=== PATIENT | male | born 1980 | race Caucasian/White ===

== ENCOUNTER → 2017-03-26 | Outpatient (CLI) | payer OTHER ==
[2017-03-26 12:46] LABS: Blood Urea Nitrogen 13 mg/dL (9-20); Non-African American GFR(MDRD) >60 (>60 ml/min/1.73 sqM)
--- NOTE | 2017-03-26 14:22 | CT ---
EXAMINATION TYPE: CT abdomen pelvis w con DATE OF EXAM: 03/26/2017 2:11 PM COMPARISON: NONE HISTORY: Patient complains of generalized abdominal pain and nausea. CT DLP: 783 mGycm CONTRAST: CT scan of the abdomen and pelvis is performed with Oral Contrast and with IV Contrast, patient injec matt with 100 mL of Omnipaque 300. FINDINGS: LUNG BASES-: No visible nodule. No infiltrate. LIVER/GB: No calcified gallstones. 1.8 cm lesion posterior segment right hepatic lobe at its periph cecy demonstrates Hounsfield unit over 40 and therefore is not a simple cyst. This lesion does not jeovany l in on delayed images. Further evaluation with ultrasound and/or MRI is advised. No additional hepat ic lesions identified. Mild prominence of the right hepatic lobe. Biliary tree is of normal caliber. PANCREAS: No inflammation. No distinct mass. SPLEEN: No splenic enlargement. No lesion seen. Several perisplenic varices noted. ADRENALS: No nodule. No thickening. KIDNEYS/BLADDER: No hydronephrosis. 4 mm calculus proximal left ureter resulting in no mild hydronep hrosis on the left. No right-sided nephrolithiasis appreciated. 1.5 x 1.7 cm rounded area of decrease d attenuation mid pole right kidney may reflect prominent renal. However nonsimple cyst underlying le min is difficult to exclude. Simple cyst is seen upper pole right kidney measuring 6 mm as well as a mid pole left kidney measuring 9.4 mm. Urinary bladder grossly unremarkable. BOWEL: Normal appendix. Normal bowel caliber. No inflammation. Poor distention of the stomach limit ing evaluation. GENITAL ORGANS: No gross abnormality. LYMPH NODES: No greater than 1cm abdominal or pelvic lymph nodes are appreciated. AORTA: No significant abnormality. OSSEOUS STRUCTURES: No significant abnormality is seen. OTHER: No significant additional abnormality is seen. IMPRESSION: 1. Nonspecific lesion right hepatic lobe. Further evaluation with ultrasound and/or MRI advised. 2. I cannot exclude a slightly hypoattenuating lesion mid pole right kidney. Again further evaluation with ultrasound and/or MRI advised. 3. Mildly obstructing calculus proximal left ureter.
== END | disposition home or self-care (01) ==
LOC: RADCTMAIN 11:55
PROVIDERS: ATTEND Family Medicine
DX: K76.89 Other specified diseases of liver (principal); N20.1 Calculus of ureter; E11.65 Type 2 diabetes mellitus with hyperglycemia; R63.4 Abnormal weight loss
CPT/HCPCS: 82565; 84520; 74177; 36415; Q9967

== ENCOUNTER → 2017-04-22 | Outpatient (CLI) | payer OTHER ==
--- NOTE | 2017-04-22 10:34 | US ---
EXAMINATION TYPE: US abdomen comp/pelvis limited DATE OF EXAM: 04/22/2017 COMPARISON: NONE CLINICAL HISTORY: N28.9 LESION RT [facility]ID[facility],E11.65 TYPE 11 DIABETES. EXAM MEASUREMENTS: Liver Length: 15.1 cm Gallbladder Wall: 0.2 cm CBD: 0.3 cm CHD: 0.3 cm Spleen: 9.9 cm Right Kidney: 14.0 x 5.2 x 4.6 cm Left Kidney: 11.8 x 5.7 x 6.1 cm Pancreas: wnl. Main pancreatic duct = 1.4 mm Liver: right echogenic nonvascular circular lesion = 1.8 x 1.9 x 1.7 cm. Gallbladder: wnl CBD: wnl Spleen: wnl Right Kidney: Enlarged. Mid cystic lesion = 1.9 x 1.5 x 1.6 cm Left Kidney: wnl Upper IVC: seen Abd Aorta: seen Bladder: distended, wnl as visualized Bilateral Jets Seen IMPRESSION: 1. Nonspecific hyperechoic lesion posterior segment right hepatic lobe could reflect atypical radha ioma. Consider MRI correlation. 2. Right renal cyst.
== END | disposition home or self-care (01) ==
LOC: RADUSWWP 09:32
PROVIDERS: ATTEND Family Medicine
DX: N28.9 Disorder of kidney and ureter, unspecified (principal); E11.65 Type 2 diabetes mellitus with hyperglycemia; N28.1 Cyst of kidney, acquired
CPT/HCPCS: 76700; 76857

== ENCOUNTER 2017-05-04 08:11 | Day surgery (SDC) | payer OTHER ==
[2017-04-30 14:21] VITALS: BMI 17.7
[~2017-05-04 08:11] MED LIST: LACTATED RINGERS 1,000 ML IV SCH
[2017-05-04 08:36] VITALS: TEMP 97.4
[2017-05-04 08:43] LABS: Glucose,Whole Blood 159 mg/dL (75-99)
[2017-05-04] MEDS ORDERED: LIDOCAINE 1% 20 ML VIAL (10MG/ML) FOR IV START INTRADERMA ONE (08:51)
[2017-05-04] MEDS ORDERED: LIDOCAINE 1% INJ 10MG/ML (20 ML MDV) ONE (09:12)
[2017-05-04] MEDS ORDERED: PROPOFOL 10 MG/ML 20 ML VIAL IV ONE (09:12)
[2017-05-04 09:40] VITALS: RESP 18
--- NOTE | 2017-05-04 09:43 | P.PCN ---
Date of Procedure: 05/04/17 Preoperative Diagnosis: Postoperative Diagnosis: Procedure(s) Performed: Procedure: Esophagogastroduodenoscopy and biopsy. Preoperative diagnosis: Epigastric pain and nonspecific abdominal symptoms. Postoperative diagnosis: 1. Small sliding hiatal hernia with no obvious esophagitis or complicated reflux disease. 2. Mild antral gastritis. 3. Multiple biopsies obtained from the duodenum, antrum and esophagus. Preparation and sedation: Was provided by anesthesia. Brief clinical history: The patient is a 56-year-old male who I have evaluated in the office regarding epigastric pain as well as abdominal gas and bloating and change in bowel habits with a tendency to constipation. The patient has history of diabetes mellitus. This evaluation is to assess for esophagitis or complicated reflux disease or other pathology. Procedure: With the patient on his left lateral decubitus position and after informed consent and adequate sedation, the Olympus-GIF 160 video upper endoscope was advanced through the cricopharyngeus down the esophagus. GE junction was around 41 cm from the incisors and there was a small sliding hiatal hernia. The esophagus did not show any obvious erosions, ulcers, strictures or White's esophagus. The endoscope was then passed into the stomach which was insufflated with air and inspected in detail including the retroflex view in the cardia. There was some mottling and erythema in the antrum but no ulcers or erosions. Pyloric channel, duodenal bulb, post bulbar area and descending duodenum appeared within normal limits. Because of his symptoms, I obtained biopsies from the duodenum, antrum and esophagus then the endoscope was withdrawn. The patient tolerated the procedure well. Plan: The patient was reassured. Will await biopsy results. Further plans can be made based on his course and biopsy results. I will keep you updated on his progress. Implants: Indications for Procedure: Operative Findings: Description of Procedure:
[2017-05-04 09:56] VITALS: BP 107/64; PULSE 74
[2017-05-04 09:56] LABS: Glucose,Whole Blood 150 mg/dL (75-99)
== END 2017-05-04 10:22 | disposition home or self-care (01) ==
LOC: ORWHC2ENDO 08:11
DX: K29.70 Gastritis, unspecified, without bleeding (principal); K44.9 Diaphragmatic hernia without obstruction or gangrene; K59.00 Constipation, unspecified; E11.9 Type 2 diabetes mellitus without complications; I10 Essential (primary) hypertension; F17.200 Nicotine dependence, unspecified, uncomplicated; K21.9 Gastro-esophageal reflux disease without esophagitis; Z79.84 Long term (current) use of oral hypoglycemic drugs; Z79.4 Long term (current) use of insulin; Z79.899 Other long term (current) drug therapy; Z91.030 Bee allergy status; Z91.013 Allergy to seafood
CPT/HCPCS: 88305; 88342; 43239; J2001; J2704

== ENCOUNTER 2019-09-08 17:57 | Emergency (ER) | payer BC, OTHER ==
[2019-09-08 18:04] VITALS: BP 154/77; PULSE 92; RESP 20; TEMP 97.8
--- NOTE | 2019-09-08 19:02 | ED ---
ENT HPI - General Chief complaint: Dental/Oral Stated complaint: Dental infection Time Seen by Provider: 09/08/19 18:15 Source: patient Mode of arrival: ambulatory Limitations: no limitations - History of Present Illness Initial comments: Patient is a 38-year-old male presenting to emergency Department with complaints of left sided dental pain 4 days. Past medical history of diabetes type 1, Emmet's disease, anxiety. Patient states he has an impacted wisdom tooth on the upper left side that sometimes gives him pain on and off for the last few y ears. The last 4 days the pain has increased and he is unable to chew on that side. Patient states is never usually hurt this bad. Patient also admits to some mild left-sided facial swelling. Patient is concerned that this might be starting to turn into an abscess. Patient also has a fractured tooth next to his wisdom tooth. Patient denies fever, chills, nausea, vomiting. Patient has no other complaints at this time. Upon arrival to the ER, vital signs are stable. - Related Data Home Medications Medication Instructions Recorded Confirmed Insulin Glargine [Lantus] 10 unit SQ BID 04/30/17 05/04/17 Lisinopril [Zestril] 2.5 mg PO 1200 04/30/17 04/30/17 Omeprazole [PriLOSEC] 20 mg PO AC-BRKFST 04/30/17 04/30/17 metFORMIN HCL [Metformin HCl] 500 mg PO BID 04/30/17 05/04/17 Previous Rx's Medication Instructions Recorded Penicillin V Potassium [Pen Vee K] 500 mg PO QID 7 Days #28 tablet 09/08/19 Allergies Allergy/AdvReac Type Severity Reaction Status Date / Time shellfish derived [Shellfish] Allergy Anaphylaxis Verified 09/08/19 18:04 venom-honey bee Allergy Unknown Verified 09/08/19 18:04 [bee venom (honey bee)] Review of Systems ROS Statement: Those systems with pertinent positive or pertinent negative responses have been documented in the HPI. ROS Other: All systems not noted in ROS Statement are negative. Past Medical History Past Medical History: Diabetes Mellitus, GERD/Reflux Additional Past Medical History / Comment(s): having abdominal pain, states takes lisinopril r/t kidney, states has cyst on kidney and some liver abnormalities is watching. History of Any Multi-Drug Resistant Organisms: None Reported Past Surgical History: Tonsillectomy Additional Past Surgical History / Comment(s): benign bone cyst removed 20 years ago, from left femur Past Anesthesia/Blood Transfusion Reactions: No Reported Reaction Additional Past Anesthesia/Blood Transfusion Reaction / Comment(s): difficulty urinating post bone cyst removal Past Psychological History: No Psychological Hx Reported Smoking Status: Current every day smoker Past Alcohol Use History: Occasional Past Drug Use History: None Reported - Past Family History Father Family Medical History: Cancer Additional Family Medical History / Comment(s): lymphoma General Exam - General Exam Comments Initial Comments: GENERAL: Well-appearing, well-nourished and in no acute distress. HEAD: Atraumatic, normocephalic. EYES: Pupils equal round and reactive to light, extraocular movements intact, sclera anicteric, conjunctiva are normal. ENT: TMs normal, nares patent, oropharynx clear without exudates. Moist mucous membranes. Pain with palpation of #16/15 teeth, mild erythema surrounding gumline. Fracture of tooth #15. Dental caries present. Mild left facial swelling. No overlying erythema. NECK: Normal range of motion, supple without lymphadenopathy or JVD. LUNGS: Breath sounds clear to auscultation bilaterally and equal. No wheezes rales or rhonchi. HEART: Regular rate and rhythm without murmurs, rubs or gallops. ABDOMEN: Soft, nontender, normoactive bowel sounds. No guarding, no rebound. No masses appreciated. NEUROLOGICAL: Cranial nerves II through XII grossly intact. Normal speech, normal gait. SKIN: Warm, Dry, normal turgor, no rashes or lesions noted. Limitations: no limitations Course Vital Signs 09/08/19 18:02 Temperature 97.8 F Pulse Rate 92 Respiratory 20 Rate Blood Pressure 154/77 O2 Sat by Pulse 98 Oximetry Medical Decision Making - Medical Decision Making Patient is a 38-year-old male presenting for a possible tooth abscess 4 days. On exam patient has multiple dental caries as well as pain with palpation of teeth #16 and #15. There is some mild surrounding erythema of the gumline. Patient will be started on antibiotic for possible tooth abscess. Patient will follow-up with dentist MARILIN. Patient is stable for discharge at this time and he is in agreement with this plan of care. Return parameters were discussed with the patient and he verbalized understanding. Case discussed with Dr. Paulino. Disposition Clinical Impression: Dental caries, Toothache, Dental abscess Disposition: HOME SELF-CARE Condition: Stable Instructions (If sedation given, give patient instructions): Dental Abscess (ED ) Additional Instructions: Please return to the Emergency Department if symptoms worsen or any other concerns. Follow-up with dentist as soon as possible Take antibiotics as prescribed.. Prescriptions: Penicillin V Potassium [Pen Vee K] 500 mg PO QID 7 Days #28 tablet Is patient prescribed a controlled substance at d/c from ED?: No Referrals: Issa Bean DO [Primary Care Provider] - 1-2 days
== END 2019-09-08 19:24 | disposition home or self-care (01) ==
LOC: EC 17:57
DX: K02.9 Dental caries, unspecified (principal); K04.7 Periapical abscess without sinus; S02.5XXA Fracture of tooth (traumatic), initial encounter for closed fracture; E10.9 Type 1 diabetes mellitus without complications; K21.9 Gastro-esophageal reflux disease without esophagitis; F17.200 Nicotine dependence, unspecified, uncomplicated; Z79.4 Long term (current) use of insulin; Z79.899 Other long term (current) drug therapy; Z91.013 Allergy to seafood; Z91.030 Bee allergy status
CPT/HCPCS: 99282

== ENCOUNTER 2019-09-20 18:40 | Inpatient (IN) | payer BC ==
[2019-09-20 19:07] LABS: Glucose,Whole Blood 389 mg/dL (75-99)
[2019-09-20] MEDS ORDERED: SODIUM CHLORIDE 0.9% 2,000 ML IV STA (19:08)
[2019-09-20] MEDS ORDERED: INSULIN REGULAR 100 UNIT/ML VIAL IV ONE (19:11)
[2019-09-20] MEDS ORDERED: INSULIN REGULAR 100 UNIT in SODIUM CHLORIDE 0.9% 100 ML IV SCH (19:15)
[2019-09-20 19:21] LABS: Basophils # (A) 0.1 k/uL (0-0.2); Basophils % (A) 1 %; Eosinophils # (A) 0.1 k/uL (0-0.7); Eosinophils % (A) 0 %; HCT 55.6 % (39.0-53.0); HGB 18.1 gm/dL (13.0-17.5); Lymphocytes # (A) 1.7 k/uL (1.0-4.8); Lymphocytes % (A) 10 %; MCH 30.2 pg (25.0-35.0); MCHC 32.5 g/dL (31.0-37.0); MCV 93.1 fL (80.0-100.0); Mean Platelet Volume 6.8; Monocytes # (A) 0.9 k/uL (0-1.0); Monocytes % (A) 5 %; Neutrophils # (A) 14.5 k/uL (1.3-7.7); Neutrophils % (A) 83 %; Platelet Count 366 k/uL (150-450); RBC 5.98 m/uL (4.30-5.90); RDW 12.1 % (11.5-15.5); WBC 17.5 k/uL (3.8-10.6)
[2019-09-20 19:30] LABS: ALT 19 U/L (21-72); AST 19 U/L (17-59); African American GFR (CKD) >90 (>60 ml/min/1.73 sqM); Albumin 5.5 g/dL (3.5-5.0); Alkaline Phosphatase 133 U/L (38-126); Amylase 65 U/L (30-110); Anion Gap 30 mmol/L; Blood Urea Nitrogen 14 mg/dL (9-20); Calcium 10.4 mg/dL (8.4-10.2); Chloride 105 mmol/L (98-107); Glucose 431 mg/dL (74-99); Sodium 140 mmol/L (137-145); Total Bilirubin 0.7 mg/dL (0.2-1.3); Total Protein 9.4 g/dL (6.3-8.2)
[2019-09-20 19:36] LABS: Carbon Dioxide 5 mmol/L (22-30); Potassium 6.1 mmol/L (3.5-5.1)
--- NOTE | 2019-09-20 19:46 | ED ---
General Adult HPI - General Chief complaint: Recheck/Abnormal Lab/Rx Stated complaint: DKA Time Seen by Provider: 09/20/19 18:40 Source: patient, family, RN notes reviewed Mode of arrival: ambulatory Limitations: no limitations - History of Present Illness Initial comments: This is a 38-year-old male who presents emergency department with past medical h istory significant for diabetes and Enrique's disease. Patient states he was unable to use as possible over the weekend but he was substituting with NovoLog but as of yesterday he started feeling sick in her sugar started to run high. Patient states he's been vomiting all day today and he feels considerably worse. Patient states he also was breathing faster he is noted and is extremely thirsty. Patient denies any fever chills per patient denies chest pain difficulty breathing or shortness of breath per patient denies any palpitations. Patient states he has some abdominal achiness secondary to probably vomiting. Patient states palpating his abdomen does not cause him any pain. Patient denies any diarrhea. Patient denies any dysuria hematuria urinary frequency. Patient denies any skin rashes lesions or sores. - Related Data Home Medications Medication Instructions Recorded Confirmed Insulin Glargine [Lantus] 10 unit SQ BID 04/30/17 05/04/17 Lisinopril [Zestril] 2.5 mg PO 1200 04/30/17 04/30/17 Omeprazole [PriLOSEC] 20 mg PO AC-BRKFST 04/30/17 04/30/17 metFORMIN HCL [Metformin HCl] 500 mg PO BID 04/30/17 05/04/17 Previous Rx's Medication Instructions Recorded Penicillin V Potassium [Pen Vee K] 500 mg PO QID 7 Days #28 tablet 09/08/19 Allergies Allergy/AdvReac Type Severity Reaction Status Date / Time shellfish derived [Shellfish] Allergy Anaphylaxis Verified 09/20/19 18:41 venom-honey bee Allergy Unknown Verified 09/20/19 18:41 [bee venom (honey bee)] Review of Systems ROS Statement: Those systems with pertinent positive or pertinent negative responses have been documented in the HPI. ROS Other: All systems not noted in ROS Statement are negative. Past Medical History Past Medical History: Diabetes Mellitus, GERD/Reflux Additional Past Medical History / Comment(s): having abdominal pain, states takes lisinopril r/t kidney, states has cyst on kidney and some liver abnormalities dr is watching. History of Any Multi-Drug Resistant Organisms: None Reported Past Surgical History: Tonsillectomy Additional Past Surgical History / Comment(s): benign bone cyst removed 20 years ago, from left femur Past Anesthesia/Blood Transfusion Reactions: No Reported Reaction Additional Past Anesthesia/Blood Transfusion Reaction / Comment(s): difficulty urinating post bone cyst removal Past Psychological History: Anxiety Smoking Status: Current every day smoker Past Alcohol Use History: Occasional Past Drug Use History: None Reported - Past Family History Father Family Medical History: Cancer Additional Family Medical History / Comment(s): lymphoma General Exam - General Exam Comments Initial Comments: GENERAL: Patient is well-developed and well-nourished. Patient is nontoxic and well- hydrated and is in mild distress. ENT: Neck is soft and supple. No significant lymphadenopathy is noted. Oropharynx is clear. Dry mucous membranes. Neck has full range of motion without eliciting any pain. EYES: The sclera were anicteric and conjunctiva were pink and moist. Extraocular movements were intact and pupils were equal round and reactive to light. Eyelids were unremarkable. PULMONARY: Patient is tachypneic. Good breath sounds bilaterally. No audible rales rhonchi or wheezing was noted. CARDIOVASCULAR: Patient is tachycardic. ABDOMEN: Soft and nontender with normal bowel sounds. No palpable organomegaly was noted. There is no palpable pulsatile mass. SKIN: Skin is clear with no lesions or rashes and otherwise unremarkable. NEUROLOGIC: Patient is alert and oriented x3. Cranial nerves II through XII are grossly in tact. Motor and sensory are also intact. Normal speech, volume and content. Symmetrical smile. MUSCULOSKELETAL: Normal extremities with adequate strength and full range of motion. LYMPHATICS: No significant lymphadenopathy is noted PSYCHIATRIC: Normal psychiatric evaluation. Limitations: no limitations Course Vital Signs 09/20/19 09/20/19 18:41 19:40 Temperature 97.7 F Pulse Rate 128 H 103 H Respiratory 18 18 Rate Blood Pressure 126/71 129/89 O2 Sat by Pulse 100 100 Oximetry Medical Decision Making - Medical Decision Making EKG shows sinus tachycardia 114 bpm HI interval is 118 QRS is 82 QT interval 340 QTC is 432. Patient's EKG shows no ST segment elevation or depression. Patient was in DKA he received 3 L of normal saline emergency department as well as an insulin bolus and insulin drip upon arrival. Patient also received Zosyn. I spoke with Dr. Randall agreed to admit the patient admitted the patient wrote admitting orders. A shows potassium was elevated however because of his acidosis secondary to DKA I did not attempt to bring it on at this time I will repeat potassium later. - Lab Data Result diagrams: 09/20/19 19:12 09/20/19 19:12 Lab Results 09/20/19 09/20/19 09/20/19 Range/Units 19: 19:12 19:12 WBC 17.5 H (3.8-10.6) k/uL RBC 5.98 H (4.30-5.90) m/uL Hgb 18.1 H (13.0-17.5) gm/dL Hct 55.6 H (39.0-53.0) % MCV 93.1 (80.0-100.0) fL MCH 30.2 (25.0-35.0) pg MCHC 32.5 (31.0-37.0) g/dL RDW 12.1 (11.5-15.5) % Plt Count 366 (150-450) k/uL Neutrophils % 83 % Lymphocytes % 10 % Monocytes % 5 % Eosinophils % 0 % Basophils % 1 % Neutrophils # 14.5 H (1.3-7.7) k/uL Lymphocytes # 1.7 (1.0-4.8) k/uL Monocytes # 0.9 (0-1.0) k/uL Eosinophils # 0.1 (0-0.7) k/uL Basophils # 0.1 (0-0.2) k/uL Sample Site ABG pH (7.35-7.45) ABG pCO2 (35-45) mmHg ABG pO2 (83-108) mmHg ABG HCO3 (21-25) mmol/L ABG Total CO2 (19-24) mmol/L ABG O2 Saturation (94-97) % ABG Base Excess mmol/L Stanislav Test FiO2 % Sodium 140 (137-145) mmol/L Potassium 6.1 H* (3.5-5.1) mmol/L Chloride 105 (98-107) mmol/L Carbon Dioxide 5 L* (22-30) mmol/L Anion Gap 30 mmol/L BUN 14 (9-20) mg/dL Creatinine 0.92 (0.66-1.25) mg/dL Est GFR (CKD-EPI)AfAm >90 (>60 ml/min/1.73 sqM) Est GFR (CKD-EPI)NonAf >90 (>60 ml/min/1.73 sqM) Glucose 431 H (74-99) mg/dL POC Glucose (mg/dL) 389 H (75-99) mg/dL POC Glu Supervisor Inspection Room ID Angel Gomez Calcium 10.4 H (8.4-10.2) mg/dL Total Bilirubin 0.7 (0.2-1.3) mg/dL AST 19 (17-59) U/L ALT 19 L (21-72) U/L Alkaline Phosphatase 133 H (38-126) U/L Total Protein 9.4 H (6.3-8.2) g/dL Albumin 5.5 H (3.5-5.0) g/dL Amylase 65 (30-110) U/L Lipase 68 (23-300) U/L Urine Color Urine Appearance (Clear) Urine pH (5.0-8.0) Ur Specific [place] (1.001-1.035) Urine Protein (Negative) Urine Glucose (UA) (Negative) Urine Ketones (Negative) Urine Blood (Negative) Urine Nitrite (Negative) Urine Bilirubin (Negative) Urine Urobilinogen (<2.0) mg/dL Ur Leukocyte Esterase (Negative) Urine RBC (0-5) /hpf Urine WBC (0-5) /hpf Hyaline Casts (0-2) /lpf Acetone, Qual Positive (Negative) 09/20/19 09/20/19 Range/Units 19:51 20:03 WBC (3.8-10.6) k/uL RBC (4.30-5.90) m/uL Hgb (13.0-17.5) gm/dL Hct (39.0-53.0) % MCV (80.0-100.0) fL MCH (25.0-35.0) pg MCHC (31.0-37.0) g/dL RDW (11.5-15.5) % Plt Count (150-450) k/uL Neutrophils % % Lymphocytes % % Monocytes % % Eosinophils % % Basophils % % Neutrophils # (1.3-7.7) k/uL Lymphocytes # (1.0-4.8) k/uL Monocytes # (0-1.0) k/uL Eosinophils # (0-0.7) k/uL Basophils # (0-0.2) k/uL Sample Site l brach ABG pH 7.04 L* (7.35-7.45) ABG pCO2 21 L (35-45) mmHg ABG pO2 130 H (83-108) mmHg ABG HCO3 6 L* (21-25) mmol/L ABG Total CO2 6 L (19-24) mmol/L ABG O2 Saturation 98.1 H (94-97) % ABG Base Excess -25.0 mmol/L Stanislav Test Yes FiO2 21 % Sodium (137-145) mmol/L Potassium (3.5-5.1) mmol/L Chloride (98-107) mmol/L Carbon Dioxide (22-30) mmol/L Anion Gap mmol/L BUN (9-20) mg/dL Creatinine (0.66-1.25) mg/dL Est GFR (CKD-EPI)AfAm (>60 ml/min/1.73 sqM) Est GFR (CKD-EPI)NonAf (>60 ml/min/1.73 sqM) Glucose (74-99) mg/dL POC Glucose (mg/dL) (75-99) mg/dL POC Glu Supervisor Inspection Room ID Calcium (8.4-10.2) mg/dL Total Bilirubin (0.2-1.3) mg/dL AST (17-59) U/L ALT (21-72) U/L Alkaline Phosphatase (38-126) U/L Total Protein (6.3-8.2) g/dL Albumin (3.5-5.0) g/dL Amylase (30-110) U/L Lipase (23-300) U/L Urine Color Light Yellow Urine Appearance Clear (Clear) Urine pH 5.5 (5.0-8.0) Ur Specific [place] 1.023 (1.001-1.035) Urine Protein 1+ H (Negative) Urine Glucose (UA) 4+ H (Negative) Urine Ketones 4+ H (Negative) Urine Blood Negative (Negative) Urine Nitrite Negative (Negative) Urine Bilirubin Negative (Negative) Urine Urobilinogen <2.0 (<2.0) mg/dL Ur Leukocyte Esterase Negative (Negative) Urine RBC <1 (0-5) /hpf Urine WBC 1 (0-5) /hpf Hyaline Casts 9 H (0-2) /lpf Acetone, Qual (Negative) Critical Care Time Critical Care Time: Yes Total Critical Care Time: 35 Disposition Clinical Impression: Diabetic ketoacidosis Disposition: ADMITTED IP TO THIS HOSP Referrals: Issa Bean DO [Primary Care Provider] - 1-2 days Time of Disposition: 20:42
[2019-09-20 20:03] LABS: Appearance,Urine Clear (Clear); Bilirubin,Urine Negative (Negative); Blood,Urine Negative (Negative); Color,Urine Light Yellow; Glucose,Urine (UA) 4+ (Negative); Hyaline Casts,Urine 9 /lpf (0-2); Leukocyte Esterase,Urine Negative (Negative); Nitrite,Urine Negative (Negative); PH, Urine 5.5 (5.0-8.0); Protein,Urine 1+ (Negative); RBC,Urine <1 /hpf (0-5); Specific Gravity,Urine 1.023 (1.001-1.035); Urobilinogen,Urine <2.0 mg/dL (<2.0); WBC,Urine 1 /hpf (0-5)
[2019-09-20 20:06] LABS: ABG Oxygen Saturation 98.1 % (94-97); ABG PCO2 21 mmHg (35-45); ABG PO2 130 mmHg (83-108); ABG TCO2 6 mmol/L (19-24); Allen Test Performed? Yes
[2019-09-20 20:07] LABS: ABG HCO3 6 mmol/L (21-25); ABG PH 7.04 (7.35-7.45)
[2019-09-20 20:12] LABS: Ketones,Urine 4+ (Negative)
[2019-09-20] MEDS ORDERED: SODIUM CHLORIDE 0.9% 1,000 ML IV ONE (20:25)
[2019-09-20] MEDS ORDERED: SODIUM CHLORIDE 0.9% 1,000 ML IV SCH (20:45)
[2019-09-20 20:52] LABS: Glucose,Whole Blood 297 mg/dL (75-99)
[2019-09-20] MEDS: INSULIN REGULAR 100 UNIT in SODIUM CHLORIDE 0.9% 100 ML IV SCH (21:31)
[2019-09-20 21:45] VITALS: BMI 17.6
[2019-09-20 22:16] LABS: Glucose,Whole Blood 213 mg/dL (75-99)
[2019-09-20] MEDS: HYDROCORTISONE SUCCINATE 100 MG/2 ML VIAL IV SCH (22:54)
[2019-09-20 23:10] LABS: Glucose,Whole Blood 217 mg/dL (75-99)
[2019-09-21 00:10] LABS: Glucose,Whole Blood 194 mg/dL (75-99)
[2019-09-21 00:38] LABS: African American GFR (CKD) >90 (>60 ml/min/1.73 sqM); Anion Gap 14 mmol/L; Blood Urea Nitrogen 10 mg/dL (9-20); Carbon Dioxide 10 mmol/L (22-30); Chloride 113 mmol/L (98-107); Glucose 156 mg/dL (74-99); Phosphorus 1.9 mg/dL (2.5-4.5); Potassium 4.3 mmol/L (3.5-5.1); Sodium 137 mmol/L (137-145)
[2019-09-21 00:59] LABS: Glucose,Whole Blood 131 mg/dL (75-99)
[2019-09-21] MEDS: D5-0.45% NACL WITH KCL 20MEQ/L 1,000 ML IV SCH ×4 (01:16→21:51)
[2019-09-21 01:56] LABS: Glucose,Whole Blood 136 mg/dL (75-99)
[2019-09-21 03:04] LABS: Glucose,Whole Blood 141 mg/dL (75-99)
[2019-09-21 04:16] LABS: Glucose,Whole Blood 167 mg/dL (75-99)
[2019-09-21 04:18] LABS: African American GFR (CKD) >90 (>60 ml/min/1.73 sqM); Anion Gap 10 mmol/L; Blood Urea Nitrogen 9 mg/dL (9-20); Carbon Dioxide 14 mmol/L (22-30); Chloride 112 mmol/L (98-107); Glucose 161 mg/dL (74-99); Potassium 4.4 mmol/L (3.5-5.1); Sodium 136 mmol/L (137-145)
[2019-09-21 05:03] LABS: Glucose,Whole Blood 204 mg/dL (75-99)
[2019-09-21 06:10] LABS: Glucose,Whole Blood 243 mg/dL (75-99)
[2019-09-21 07:11] LABS: Glucose,Whole Blood 237 mg/dL (75-99)
[2019-09-21 08:04] LABS: Glucose,Whole Blood 249 mg/dL (75-99)
[2019-09-21 08:41] LABS: African American GFR (CKD) >90 (>60 ml/min/1.73 sqM); Anion Gap 12 mmol/L; Blood Urea Nitrogen 7 mg/dL (9-20); Carbon Dioxide 16 mmol/L (22-30); Chloride 108 mmol/L (98-107); Glucose 270 mg/dL (74-99); Phosphorus 3.7 mg/dL (2.5-4.5); Potassium 4.6 mmol/L (3.5-5.1); Sodium 136 mmol/L (137-145)
[2019-09-21 09:06] LABS: Glucose,Whole Blood 242 mg/dL (75-99)
[2019-09-21] MEDS: HYDROCORTISONE SUCCINATE 100 MG/2 ML VIAL IV SCH ×2 (09:24→22:55)
[2019-09-21 11:39] LABS: Glucose,Whole Blood 274 mg/dL (75-99)
[2019-09-21 12:55] LABS: Glucose,Whole Blood 221 mg/dL (75-99)
[2019-09-21 13:26] LABS: African American GFR (CKD) >90 (>60 ml/min/1.73 sqM); Anion Gap 11 mmol/L; Blood Urea Nitrogen 7 mg/dL (9-20); Carbon Dioxide 16 mmol/L (22-30); Chloride 107 mmol/L (98-107); Glucose 266 mg/dL (74-99); Phosphorus 1.1 mg/dL (2.5-4.5); Potassium 3.9 mmol/L (3.5-5.1); Sodium 134 mmol/L (137-145)
[2019-09-21 15:07] LABS: Glucose,Whole Blood 269 mg/dL (75-99)
[2019-09-21 15:18] LABS: Glucose,Whole Blood 362 mg/dL (75-99)
[2019-09-21] MEDS ORDERED: HYDROCORTISONE SUCCINATE 100 MG/2 ML VIAL IV SCH (16:00)
[2019-09-21 16:24] LABS: Glucose,Whole Blood 395 mg/dL (75-99)
[2019-09-21 17:06] LABS: African American GFR (CKD) >90 (>60 ml/min/1.73 sqM); Anion Gap 12 mmol/L; Blood Urea Nitrogen 9 mg/dL (9-20); Carbon Dioxide 15 mmol/L (22-30); Chloride 105 mmol/L (98-107); Glucose 454 mg/dL (74-99); Potassium 4.5 mmol/L (3.5-5.1); Sodium 132 mmol/L (137-145)
[2019-09-21 17:18] LABS: Glucose,Whole Blood 388 mg/dL (75-99)
[2019-09-21] MEDS: ENOXAPARIN 40 MG/0.4 ML SYRINGE SQ SCH (17:18)
[2019-09-21 19:01] LABS: Glucose,Whole Blood 360 mg/dL (75-99)
--- NOTE | 2019-09-21 19:23 | P.HPIM ---
History of Present Illness H&P Date: 09/21/19 Chief Complaint: High-Sugars History of presenting complaint: This is a very pleasant 38-year-old gentleman who follows with Dr. Angelina Bean. Patient has a known diagnosis of autoimmune Polygam glandular syndrome. This is manifested as affecting his adrenal glands the form of [place]'s disease and also affecting his pancreas leading to diabetes. He was treated in the past with diabetes mellitus type 2 is now insulin requiring. Patient has insulin pump. Patient ran out of his cartridges 5 days ago. And patient is only using his short-acting insulin. Did not use his Lantus. Patient's sugars started running high became weak tired and nauseated. Patient is vomiting for the whole day. Weak tired rundown. Also some abdominal discomfort. Subsequently landed up in the ER with diabetic ketoacidosis. Patient is put on insulin drip and IV fluids. This morning feeling better. And hungry. No fever or chills. at the bedside. Feeling better since presentation. Review of systems: GEN.: Weak and tired EYES: None HEENT: None NECK: None RESPIRATORY: None CARDIOVASCULAR: None GASTROINTESTINAL: [Nausea GENITOURINARY: None MUSCULOSKELETAL: None LYMPHATICS: None HEMATOLOGICAL: None PSYCHIATRY: None NEUROLOGICAL: None Past medical history to include: Autoimmune only glandular syndrome affecting the adrenal glands in the pancreas Social history: Patient works as a cleaning company. . Alcohol occasionally. Smokes a pack a day for over 24 years Physical examination: VITAL SIGNS: 97.7, 128, 18, 126/71, 100% room air GENERAL: BMI 17.6, laying bed awake. EYES: Pupils equal. Conjunctiva normal. HEENT: External appearance of nose and ears normal, oral cavity grossly normal. NECK: JVD not raised; masses not palpable. HEART: First and second heart sounds are normal; no edema. LUNGS: Respiratory rate normal; clear to auscultation. ABDOMEN: Soft, scaphoid, nontender, liver spleen not palpable, no masses palpa ble. PSYCH: Alert and oriented x3; mood and affect normal. NEUROLOGICAL: Cranial nerves grossly intact; no facial asymmetry, power and sensation grossly intact. LYMPHATICS: No lymph nodes palpable in the axilla and neck INVESTIGATIONS, reviewed in the clinical context: White count 7.5 hemoglobin 18.1 platelets 366 potassium 6.1 bicarbonate 5 creatinine 0.9 to blood glucose 431 Arterial blood gases showing pH of 7.04 pCO2 21 bicarb of 6 Serum acetone positive Assessment: -Acute diabetic ketoacidosis the patient has not be using insulin pump last 5 days and not taking long-acting insulin. 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 Getting better this morning. Came to eat. Discussed with the patient and . She will bring the cartridges later tonight. Insulin pump will be resumed. Lovenox for DVT prophylaxis. Patient was given stress dose of hydrocortisone 100 mg daily started last night. This will be decreased to 50 mg every 8 this afternoon. We'll see how patient's sugars to tonight and will go from there. Patient is educated about not to miss his dose of the future. Seen by diabetic coordinator. Smoke cessation counseling: This was done with the patient. Nicotine patch is being given. More than 3 minutes was spent for this Past Medical History Past Medical History: Diabetes Mellitus Additional Past Medical History / Comment(s): having abdominal pain, states has cyst on kidney; Type one diabetic; Addisons disease History of Any Multi-Drug Resistant Organisms: None Reported Past Surgical History: Tonsillectomy Additional Past Surgical History / Comment(s): benign bone cyst removed 20 years ago, from left femur Past Anesthesia/Blood Transfusion Reactions: No Reported Reaction Additional Past Anesthesia/Blood Transfusion Reaction / Comment(s): difficulty urinating post bone cyst removal Past Psychological History: Anxiety Smoking Status: Current every day smoker Past Alcohol Use History: Occasional Additional Past Alcohol Use History / Comment(s): smokes less than 1 ppd from age 14 (1993) Past Drug Use History: None Reported - Past Family History Father Family Medical History: Cancer Additional Family Medical History / Comment(s): lymphoma Medications and Allergies Home Medications Medication Instructions Recorded Confirmed Type Insulin Glargine [Lantus] See Protocol SQ DAILY PRN 04/30/17 09/20/19 History Penicillin V Potassium [Pen Vee K] 500 mg PO QID 7 Days #28 tablet 09/08/19 09/20/19 Rx EPINEPHrine (Auto Inject) [Epipen] 0.3 mg IM ONCE PRN 09/20/19 09/20/19 History Fludrocortisone [Florinef] 0.1 mg PO HS 09/20/19 09/20/19 History Hydrocortisone 10 mg PO HS 09/20/19 09/20/19 History Insulin Aspart (For Pump) [NovoLOG 0.01 unit SQ-PUMP CONTINUOUS 09/20/19 09/20/19 History (For Pump)] Mirtazapine [Remeron] 15 mg PO HS 09/20/19 09/20/19 History Allergies Allergy/AdvReac Type Severity Reaction Status Date / Time shellfish derived [Shellfish] Allergy Anaphylaxis Verified 09/20/19 21:15 venom-honey bee Allergy Unknown Verified 09/20/19 21:15 [bee venom (honey bee)] Physical Exam Vitals: Vital Signs Temp Pulse Pulse Resp BP BP Pulse Ox 09/21/19 03:08 88 16 128/69 97 09/21/19 00:00 98.2 F 106 H 16 133/71 100 09/20/19 20:57 112 H 18 142/78 99 09/20/19 19:40 103 H 18 129/89 100 09/20/19 18:41 97.7 F 128 H 18 126/71 100 Intake and Output 09/20/19 09/21/19 09/21/19 22:59 06:59 14:59 Intake Total 3.79 176.753 0.713 Balance 3.79 176.753 0.713 Intake: Intake, IV Titration 3.79 176.753 0.713 Amount D5-0.45% NaCl with KCl 150 20Meq/l 1,000 ml @ 150 mls/hr IV .Q6H40M [facility] Rx# :[id number] Insulin Regular 100 unit 3.79 26.753 0.713 In Sodium Chloride 0.9% 100 ml @ 0.1 UNITS/KG/HR 6.689 mls/hr IV .Q15H6M [facility] Rx#:[id number] Other: # Voids 1 Weight 66.224 kg 59.012 kg Results CBC & Chem 7: 09/20/19 19:12 09/21/19 16:14 Labs: Abnormal Lab Results - Last 24 Hours (Table) 09/20/19 09/20/19 09/20/19 Range/Units 19:05 19:12 19:12 WBC 17.5 H (3.8-10.6) k/uL RBC 5.98 H (4.30-5.90) m/uL Hgb 18.1 H (13.0-17.5) gm/dL Hct 55.6 H (39.0-53.0) % Neutrophils # 14.5 H (1.3-7.7) k/uL ABG pH (7.35-7.45) ABG pCO2 (35-45) mmHg ABG pO2 (83-108) mmHg ABG HCO3 (21-25) mmol/L ABG Total CO2 (19-24) mmol/L ABG O2 Saturation (94-97) % Sodium (137-145) mmol/L Potassium 6.1 H* (3.5-5.1) mmol/L Chloride (98-107) mmol/L Carbon Dioxide 5 L* (22-30) mmol/L BUN (9-20) mg/dL Creatinine (0.66-1.25) mg/dL Glucose 431 H (74-99) mg/dL POC Glucose (mg/dL) 389 H (75-99) mg/dL Calcium 10.4 H (8.4-10.2) mg/dL Phosphorus (2.5-4.5) mg/dL ALT 19 L (21-72) U/L Alkaline Phosphatase 133 H (38-126) U/L Total Protein 9.4 H (6.3-8.2) g/dL Albumin 5.5 H (3.5-5.0) g/dL Urine Protein (Negative) Urine Glucose (UA) (Negative) Urine Ketones (Negative) Hyaline Casts (0-2) /lpf 09/20/19 09/20/19 09/20/19 Range/Units 19:51 20:03 20:51 WBC (3.8-10.6) k/uL RBC (4.30-5.90) m/uL Hgb (13.0-17.5) gm/dL Hct (39.0-53.0) % Neutrophils # (1.3-7.7) k/uL ABG pH 7.04 L* (7.35-7.45) ABG pCO2 21 L (35-45) mmHg ABG pO2 130 H (83-108) mmHg ABG HCO3 6 L* (21-25) mmol/L ABG Total CO2 6 L (19-24) mmol/L ABG O2 Saturation 98.1 H (94-97) % Sodium (137-145) mmol/L Potassium (3.5-5.1) mmol/L Chloride (98-107) mmol/L Carbon Dioxide (22-30) mmol/L BUN (9-20) mg/dL Creatinine (0.66-1.25) mg/dL Glucose (74-99) mg/dL POC Glucose (mg/dL) 297 H (75-99) mg/dL Calcium (8.4-10.2) mg/dL Phosphorus (2.5-4.5) mg/dL ALT (21-72) U/L Alkaline Phosphatase (38-126) U/L Total Protein (6.3-8.2) g/dL Albumin (3.5-5.0) g/dL Urine Protein 1+ H (Negative) Urine Glucose (UA) 4+ H (Negative) Urine Ketones 4+ H (Negative) Hyaline Casts 9 H (0-2) /lpf 09/20/19 09/20/19 09/20/19 Range/Units 22:03 22:59 23:58 WBC (3.8-10.6) k/uL RBC (4.30-5.90) m/uL Hgb (13.0-17.5) gm/dL Hct (39.0-53.0) % Neutrophils # (1.3-7.7) k/uL ABG pH (7.35-7.45) ABG pCO2 (35-45) mmHg ABG pO2 (83-108) mmHg ABG HCO3 (21-25) mmol/L ABG Total CO2 (19-24) mmol/L ABG O2 Saturation (94-97) % Sodium (137-145) mmol/L Potassium (3.5-5.1) mmol/L Chloride (98-107) mmol/L Carbon Dioxide (22-30) mmol/L BUN (9-20) mg/dL Creatinine (0.66-1.25) mg/dL Glucose (74-99) mg/dL POC Glucose (mg/dL) 213 H 217 H 194 H (75-99) mg/dL Calcium (8.4-10.2) mg/dL Phosphorus (2.5-4.5) mg/dL ALT (21-72) U/L Alkaline Phosphatase (38-126) U/L Total Protein (6.3-8.2) g/dL Albumin (3.5-5.0) g/dL Urine Protein (Negative) Urine Glucose (UA) (Negative) Urine Ketones (Negative) Hyaline Casts (0-2) /lpf 09/21/19 09/21/19 09/21/19 Range/Units 00:08 00:58 01:55 WBC (3.8-10.6) k/uL RBC (4.30-5.90) m/uL Hgb (13.0-17.5) gm/dL Hct (39.0-53.0) % Neutrophils # (1.3-7.7) k/uL ABG pH (7.35-7.45) ABG pCO2 (35-45) mmHg ABG pO2 (83-108) mmHg ABG HCO3 (21-25) mmol/L ABG Total CO2 (19-24) mmol/L ABG O2 Saturation (94-97) % Sodium (137-145) mmol/L Potassium (3.5-5.1) mmol/L Chloride 113 H (98-107) mmol/L Carbon Dioxide 10 L (22-30) mmol/L BUN (9-20) mg/dL Creatinine 0.53 L (0.66-1.25) mg/dL Glucose 156 H (74-99) mg/dL POC Glucose (mg/dL) 131 H 136 H (75-99) mg/dL Calcium (8.4-10.2) mg/dL Phosphorus 1.9 L (2.5-4.5) mg/dL ALT (21-72) U/L Alkaline Phosphatase (38-126) U/L Total Protein (6.3-8.2) g/dL Albumin (3.5-5.0) g/dL Urine Protein (Negative) Urine Glucose (UA) (Negative) Urine Ketones (Negative) Hyaline Casts (0-2) /lpf 09/21/19 09/21/19 09/21/19 Range/Units 03:03 03:45 04:05 WBC (3.8-10.6) k/uL RBC (4.30-5.90) m/uL Hgb (13.0-17.5) gm/dL Hct (39.0-53.0) % Neutrophils # (1.3-7.7) k/uL ABG pH (7.35-7.45) ABG pCO2 (35-45) mmHg ABG pO2 (83-108) mmHg ABG HCO3 (21-25) mmol/L ABG Total CO2 (19-24) mmol/L ABG O2 Saturation (94-97) % Sodium 136 L (137-145) mmol/L Potassium (3.5-5.1) mmol/L Chloride 112 H (98-107) mmol/L Carbon Dioxide 14 L (22-30) mmol/L BUN (9-20) mg/dL Creatinine 0.51 L (0.66-1.25) mg/dL Glucose 161 H (74-99) mg/dL POC Glucose (mg/dL) 141 H 167 H (75-99) mg/dL Calcium (8.4-10.2) mg/dL Phosphorus 2.0 L (2.5-4.5) mg/dL ALT (21-72) U/L Alkaline Phosphatase (38-126) U/L Total Protein (6.3-8.2) g/dL Albumin (3.5-5.0) g/dL Urine Protein (Negative) Urine Glucose (UA) (Negative) Urine Ketones (Negative) Hyaline Casts (0-2) /lpf 09/21/19 09/21/19 09/21/19 Range/Units 05:01 06:01 06:59 WBC (3.8-10.6) k/uL RBC (4.30-5.90) m/uL Hgb (13.0-17.5) gm/dL Hct (39.0-53.0) % Neutrophils # (1.3-7.7) k/uL ABG pH (7.35-7.45) ABG pCO2 (35-45) mmHg ABG pO2 (83-108) mmHg ABG HCO3 (21-25) mmol/L ABG Total CO2 (19-24) mmol/L ABG O2 Saturation (94-97) % Sodium (137-145) mmol/L Potassium (3.5-5.1) mmol/L Chloride (98-107) mmol/L Carbon Dioxide (22-30) mmol/L BUN (9-20) mg/dL Creatinine (0.66-1.25) mg/dL Glucose (74-99) mg/dL POC Glucose (mg/dL) 204 H 243 H 237 H (75-99) mg/dL Calcium (8.4-10.2) mg/dL Phosphorus (2.5-4.5) mg/dL ALT (21-72) U/L Alkaline Phosphatase (38-126) U/L Total Protein (6.3-8.2) g/dL Albumin (3.5-5.0) g/dL Urine Protein (Negative) Urine Glucose (UA) (Negative) Urine Ketones (Negative) Hyaline Casts (0-2) /lpf 09/21/19 09/21/19 09/21/19 Range/Units 08:02 08:05 09:04 WBC (3.8-10.6) k/uL RBC (4.30-5.90) m/uL Hgb (13.0-17.5) gm/dL Hct (39.0-53.0) % Neutrophils # (1.3-7.7) k/uL ABG pH (7.35-7.45) ABG pCO2 (35-45) mmHg ABG pO2 (83-108) mmHg ABG HCO3 (21-25) mmol/L ABG Total CO2 (19-24) mmol/L ABG O2 Saturation (94-97) % Sodium 136 L (137-145) mmol/L Potassium (3.5-5.1) mmol/L Chloride 108 H (98-107) mmol/L Carbon Dioxide 16 L (22-30) mmol/L BUN 7 L (9-20) mg/dL Creatinine 0.57 L (0.66-1.25) mg/dL Glucose 270 H (74-99) mg/dL POC Glucose (mg/dL) 249 H 242 H (75-99) mg/dL Calcium (8.4-10.2) mg/dL Phosphorus (2.5-4.5) mg/dL ALT (21-72) U/L Alkaline Phosphatase (38-126) U/L Total Protein (6.3-8.2) g/dL Albumin (3.5-5.0) g/dL Urine Protein (Negative) Urine Glucose (UA) (Negative) Urine Ketones (Negative) Hyaline Casts (0-2) /lpf Thrombosis Risk Factor Assmnt - Choose All That Apply Any of the Below Risk Factors Present?: No Other Risk Factors: No Other congenital or acquired thrombophilia - If yes, enter type in comment: No Thrombosis Risk Factor Assessment Level: Very Low Risk
[2019-09-21 19:41] LABS: Glucose,Whole Blood 314 mg/dL (75-99)
[2019-09-21 20:34] LABS: African American GFR (CKD) >90 (>60 ml/min/1.73 sqM); Anion Gap 10 mmol/L; Blood Urea Nitrogen 11 mg/dL (9-20); Calcium 9.2 mg/dL (8.4-10.2); Carbon Dioxide 20 mmol/L (22-30); Chloride 105 mmol/L (98-107); Glucose 293 mg/dL (74-99); Phosphorus 1.2 mg/dL (2.5-4.5); Potassium 4.1 mmol/L (3.5-5.1); Sodium 135 mmol/L (137-145)
[2019-09-21 20:48] LABS: Glucose,Whole Blood 223 mg/dL (75-99)
[2019-09-21] MEDS ORDERED: MIRTAZAPINE 15 MG TAB PO SCH (21:00)
[2019-09-21] MEDS ORDERED: FLUDROCORTISONE 0.1 MG TAB PO SCH (21:00)
[2019-09-21 22:45] LABS: Glucose,Whole Blood 193 mg/dL (75-99)
[2019-09-21 22:46] LABS: Glucose,Whole Blood 167 mg/dL (75-99)
[2019-09-21] MEDS: INSULIN REGULAR 100 UNIT in SODIUM CHLORIDE 0.9% 100 ML IV SCH (23:11)
[2019-09-22 00:04] LABS: Glucose,Whole Blood 137 mg/dL (75-99)
[2019-09-22 00:38] LABS: Glucose,Whole Blood 176 mg/dL (75-99)
[2019-09-22 01:42] LABS: Glucose,Whole Blood 198 mg/dL (75-99)
[2019-09-22 03:02] LABS: Glucose,Whole Blood 213 mg/dL (75-99)
[2019-09-22 04:11] LABS: Glucose,Whole Blood 211 mg/dL (75-99)
[2019-09-22 05:20] LABS: Glucose,Whole Blood 210 mg/dL (75-99)
[2019-09-22] MEDS ORDERED: INSULIN ASPART (NovoLOG) 100 UNIT/ML VIAL SQ PRN (05:34)
[2019-09-22] MEDS ORDERED: INSULIN PUMP BASAL RATES 1 EACH MISC MISCELLANE PRN (05:34)
[2019-09-22] MEDS ORDERED: INSPUCOR MISCELLANE PRN (05:34)
[2019-09-22 06:05] LABS: Glucose,Whole Blood 218 mg/dL (75-99)
[2019-09-22] MEDS: D5-0.45% NACL WITH KCL 20MEQ/L 1,000 ML IV SCH (06:27)
[2019-09-22 07:17] LABS: Glucose,Whole Blood 235 mg/dL (75-99)
[2019-09-22] MEDS: HYDROCORTISONE SUCCINATE 100 MG/2 ML VIAL IV SCH (08:18)
[2019-09-22] MEDS: ENOXAPARIN 40 MG/0.4 ML SYRINGE SQ SCH (08:18)
[2019-09-22] MEDS ORDERED: D5-0.45% NACL WITH KCL 20MEQ/L 1,000 ML IV SCH (09:00)
[2019-09-22 09:06] VITALS: RESP 16
[2019-09-22] MEDS: INSULIN REGULAR 100 UNIT in SODIUM CHLORIDE 0.9% 100 ML IV SCH (09:18)
[2019-09-22 09:42] LABS: ALT 21 U/L (21-72); AST 13 U/L (17-59); African American GFR (CKD) >90 (>60 ml/min/1.73 sqM); Alkaline Phosphatase 61 U/L (38-126); Anion Gap 9 mmol/L; Blood Urea Nitrogen 13 mg/dL (9-20); Calcium 8.4 mg/dL (8.4-10.2); Carbon Dioxide 19 mmol/L (22-30); Chloride 110 mmol/L (98-107); Glucose 155 mg/dL (74-99); Phosphorus 1.6 mg/dL (2.5-4.5); Sodium 138 mmol/L (137-145); Total Bilirubin 0.4 mg/dL (0.2-1.3); Total Protein 5.5 g/dL (6.3-8.2)
[2019-09-22] MEDS ORDERED: INSULIN PUMP ACTIVE INSULIN 1 EACH MISC MISCELLANE PRN (09:50)
[2019-09-22] MEDS ORDERED: INSULIN PUMP TARGET GLUCOSE 1 EACH MISC MISCELLANE PRN (09:50)
[2019-09-22] MEDS ORDERED: POTASSIUM CHLORIDE ER 20 MEQ TAB.ER PO STA (11:15)
[2019-09-22 11:49] LABS: Glucose,Whole Blood 341 mg/dL (75-99)
[2019-09-22 12:22] VITALS: BP 127/72; PULSE 77; TEMP 98.2
[2019-09-22] MEDS ORDERED: INSULIN PUMP MEAL BOLUS 1 UNIT MISC MISCELLANE SCH (12:30)
--- NOTE | 2019-09-22 13:29 | CDI ---
Documentation Clarification Form Date: 09/22/2019 1:09:11 PM From: Angelina Ambrocio RN CCDS Admit Date: 09/20/2019 8:45:00 PM Patient Name: Gerardo Ramirez Visit Number: [id number] Discharge Date: ATTENTION: The Clinical Documentation Specialists (CDI) and [facility] Coding Staff appreciate your assistance in clarifying documentation. Please respond to the clarification below the line at the bottom and electronically sign. The CDI & [facility] Coding staff will review the response and follow-up if needed. Please note: Queries are made part of the Legal Health Record. If you have any questions, please contact the author of this message via ITS. Dr. Nacho Randall Conflicting documentation has been found in the medical record: Both are found in the H & P He was treated in the past with diabetes mellitus type2 is now insulin requiring. 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 The patient ran out of his insulin pump cartridges. Clinical Indicators: H & P Past Medical History Type one diabetic Treatment: Insulin Rapid Acting Insulin Pump Replacement ; Insulin Pump basal rates; In your opinion, what is the most clinically appropriate diagnosis for this patient? * Diabetes Mellitus Type 1 * Diabetes Mellitus Type 2 * Other explanation of clinical findings * Unable to determine (no explanation for clinical findings) (Last Revision: February 2018) Diabetes mellitus type 1 MTDD
[2019-09-22 14:34] LABS: Hemoglobin A1C 11.8 % (4.0-6.0)
--- NOTE | 2019-09-26 12:14 | DS ---
DISCHARGE SUMMARY DATE OF ADMISSION: 09/20/2019 DATE OF DISCHARGE: 09/22/2019 FINAL DIAGNOSES: 1. Acute diabetic ketoacidosis in a patient not able to use his insulin pump from malfunction. 2. Diabetes mellitus type 1. 3. Severe hyperkalemia due to metabolic acidosis. 4. Chronic nicotine dependence, patient is a cigarette smoker. 5. Autoimmune [place]'s disease. 6. 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 HOSPITAL COURSE: This is a very pleasant 38-year-old gentleman of Dr. Bean who has a diagnosis of autoimmune polyglandular syndrome who follows with Dr. Kinsey from Endocrinology. Has been on insulin. The patient ran out of his insulin cartridges 5 days prior to admission and was managing himself only short-acting, not taking his long-acting Lantus. Patient presented with diabetic ketoacidosis and severe electrolyte derangement. Responded well to IV insulin. The patient was seen by diabetic coordinator. I had a lengthy talk with the patient and his and educated about the importance of making sure his supplies are adequate at all given times. The patient was doing well by the time of discharge. Also counseled about smoking. DISCHARGE MEDICATIONS: 1. Remeron 15 mg q.h.s. 2. NovoLog insulin pump. 3. Hydrocortisone 10 mg q.h.s. 4. Florinef 0.1 mg q.h.s. 5. EpiPen p.r.n. 6. Penicillin, a week to finish course from before. DISPOSITION: 1. Home. Return to work in 3 days. Accu-Cheks to be followed. Follow up with Dr. Kinsey on 10/10/2019. Follow up with Dr. Bean on 09/27/2019. PHYSICAL EXAMINATION: Temperature 98.2 pulse 77, respirations 16, blood pressure 127/72, pulse ox 98% on room air. LUNGS: fair entry. CARDIOVASCULAR: First and second sounds normal. LABS: Potassium 3 replaced, creatinine 0.54. Follow up with Dr. Bean. MMODL / IJN: [id number] /
== END 2019-09-22 13:24 | disposition home or self-care (01) | DRG 638 ==
LOC: EC 18:40 → 3SCARD 20:45
PROVIDERS: ADMIT Hospitalist; ATTEND Hospitalist
DX: E10.10 Type 1 diabetes mellitus with ketoacidosis without coma (principal); E27.1 Primary adrenocortical insufficiency; T38.3X6A Underdosing of insulin and oral hypoglycemic [antidiabetic] drugs, initial encounter; E87.5 Hyperkalemia; E31.0 Autoimmune polyglandular failure; Z91.138 Patient's unintentional underdosing of medication regimen for other reason; F17.210 Nicotine dependence, cigarettes, uncomplicated; Z71.6 Tobacco abuse counseling; Z79.4 Long term (current) use of insulin; Z96.41 Presence of insulin pump (external) (internal); Z79.52 Long term (current) use of systemic steroids; Z79.899 Other long term (current) drug therapy; Z86.59 Personal history of other mental and behavioral disorders; Z98.890 Other specified postprocedural states; Z91.030 Bee allergy status; Z91.013 Allergy to seafood; Y63.6 Underdosing and nonadministration of necessary drug, medicament or biological substance; Y92.009 Unspecified place in unspecified non-institutional (private) residence as the place of occurrence of the external cause; Z80.7 Family history of other malignant neoplasms of lymphoid, hematopoietic and related tissues
CPT/HCPCS: 36415; 36600; 80048; 80051; 80053; 81001; 82009; 82150; 82565; 82805; 82947; 83036; 83690; 83735; 84100; 84520; 85025; 93005; 96360; 99285

== ENCOUNTER 2022-07-29 15:19 | Inpatient (IN) | payer BC ==
[2022-07-29] MEDS ORDERED: SODIUM CHLORIDE 0.9% 2,000 ML IV STA (18:08)
[2022-07-29] MEDS ORDERED: ONDANSETRON 4 MG/2 ML VIAL IVP STA (18:08)
[2022-07-29 18:18] LABS: Glucose,Whole Blood 323 mg/dL (70-110)
--- NOTE | 2022-07-29 18:20 | ED ---
Nausea/Vomiting/Diarrhea HPI - General Chief complaint: Nausea/Vomiting/Diarrhea Stated complaint: Covid+,Diabetic issues Time Seen by Provider: 07/29/22 18:07 Source: patient, RN notes reviewed Mode of arrival: ambulatory Limitations: no limitations - History of Present Illness Initial comments: This is a pleasant 41-year-old male with a history of insulin-controlled diabetes mellitus. Patient states he started having nausea and vomiting on Thursday night. Patient states both of his kids tested positive for COVID-19. He then tested positive yesterday and has had fatigue, vomiting, and nausea since. Patient states he believes he is in DKA. His sugar is 276 just prior to arrival. He states that he likely had an insulin pump failure last night but has switched to doubt. Patient denying any shortness of breath. Denies any cough. Denies any hematemesis or coffee-ground emesis. No headache, no fever or chills, no changes in vision or hearing, no sore throat or difficulty with speech, no neck pain, no chest pain or shortness of breath, n o abdominal pain, no changes in bowel movements, no numbness or tingling, no extremity pain, no skin rashes or lesions. no definitive changes in urination Past medical, surgical, social, and family history reviewed. - Related Data Home Medications Medication Instructions Recorded Confirmed EPINEPHrine (Auto Inject) [Epipen] 0.3 mg IM ONCE PRN 09/20/19 07/29/22 Fludrocortisone [Florinef] 0.1 mg PO HS 09/20/19 07/29/22 Insulin Aspart (For Pump) [NovoLOG 0.01 unit SQ-PUMP CONTINUOUS 09/20/19 07/29/22 (For Pump)] ALPRAZolam [Xanax XR] 0.5 mg PO DAILY 07/29/22 07/29/22 Atorvastatin [Lipitor] 20 mg PO HS 07/29/22 07/29/22 Hydrocortisone [Cortef] 10 mg PO BID 07/29/22 07/29/22 Mirtazapine [Remeron] 45 mg PO HS 07/29/22 07/29/22 busPIRone HCL 15 mg PO BID 07/29/22 07/29/22 lisinopriL [Prinivil] 10 mg PO DAILY 07/29/22 07/29/22 Allergies Allergy/AdvReac Type Severity Reaction Status Date / Time shellfish derived [Shellfish] Allergy Anaphylaxis Verified 07/29/22 19:48 venom-honey bee Allergy Unknown Verified 07/29/22 19:48 [bee venom (honey bee)] Review of Systems ROS Statement: Those systems with pertinent positive or pertinent negative responses have been documented in the HPI. ROS Other: All systems not noted in ROS Statement are negative. Past Medical History Past Medical History: Diabetes Mellitus Additional Past Medical History / Comment(s): having abdominal pain, states has cyst on kidney; Type one diabetic; Addisons disease History of Any Multi-Drug Resistant Organisms: None Reported Past Surgical History: Tonsillectomy Additional Past Surgical History / Comment(s): benign bone cyst removed 20 years ago, from left femur Past Anesthesia/Blood Transfusion Reactions: No Reported Reaction Additional Past Anesthesia/Blood Transfusion Reaction / Comment(s): difficulty urinating post bone cyst removal Past Psychological History: Anxiety Smoking Status: Never smoker Past Alcohol Use History: Occasional Past Drug Use History: Marijuana - Past Family History Father Family Medical History: Cancer Additional Family Medical History / Comment(s): lymphoma General Exam - General Exam Comments Initial Comments: Well-developed, well-nourished male in no significant distress. Insulin pump noted in the right lower abdominal area. Patient appears to have adequate skin turgor. Cap refill less than 2 seconds. No mottling. Cranial nerves II through XII grossly intact. Patient alert and oriented Patient noted to be tachycardic in triage as well as my assessment. Current heart rate is 120 by radial pulse and auscultation. Limitations: no limitations General appearance: alert, in no apparent distress, in distress (Mild) Head exam: Present: atraumatic, normocephalic, normal inspection Eye exam: Present: normal appearance, PERRL, EOMI. Absent: scleral icterus, conjunctival injection, periorbital swelling ENT exam: Present: normal exam, mucous membranes dry, mucous membranes moist. Absent: normal external ear exam Neck exam: Present: normal inspection. Absent: tenderness, meningismus, lymphadenopathy Respiratory exam: Present: normal lung sounds bilaterally. Absent: respiratory distress, wheezes, rales, rhonchi, stridor Cardiovascular Exam: Present: regular rate, tachycardia, normal heart sounds. Absent: systolic murmur, diastolic murmur, rubs, gallop, clicks GI/Abdominal exam: Present: soft, normal bowel sounds. Absent: distended, tenderness, guarding, rebound, rigid Extremities exam: Present: normal inspection, full ROM, normal capillary refill. Absent: tenderness, pedal edema, joint swelling, calf tenderness Back exam: Present: normal inspection Neurological exam: Present: alert, oriented X3, CN II-XII intact Psychiatric exam: Present: normal affect, normal mood Skin exam: Present: warm, dry, intact, normal color. Absent: rash Course Vital Signs 07/29/22 07/29/22 07/29/22 15:52 18:09 19:30 Temperature 97.7 F 97.6 F Pulse Rate 139 H 118 H Respiratory 22 16 Rate Blood Pressure 130/81 138/127 140/87 O2 Sat by Pulse 99 99 Oximetry - Reevaluation(s) Reevaluation #1: 07/29/22 19:36 Medical record is reviewed Symptoms are somewhat improved with regards to nausea and heart rate after initial fluids and antiemetic administration Patient is informed of results and questions answered Patient in no distress Skin turgor normal, capillary refill less than 2 seconds Reevaluation #2: 07/29/22 20:34 Patient reevaluated, patient is improved. However we are awaiting CMP and venous blood gas which apparently were hemolyzed. Capillary refill less than 2 seconds. No mottling. Repeat cardiopulmonary examination is unchanged. No distress - Consultations Consultation #1: Case discussed with Ms. Muhammad, the APC from [facility] for admission. We'll consult endocrinology as well. Medical Decision Making - Medical Decision Making Tested positive for COVID-19 yesterday. Patient is a diabetic, current blood glucose is 276 which both and patient states is relatively normal for him. Patient has been in DKA before and believes this is similar to that event. Note there is no respiratory distress. patient admitted for diabetic ketoacidosis under [facility]. Patient tachycardic but otherwise hemodynamically stable. Does not appear to be consistent with infectious process other than the COVID-19. Chest x-ray was clear. Discussed with the admitting physician. We'll attempt to consult endocrinology. The case was discussed in detail with ED attending physician. Presentation, findings, treatment plan discussed in detail. Process Server Dr. Meyer - Lab Data Result diagrams: 07/29/22 18:30 07/29/22 18:50 Lab Results 07/29/22 07/29/22 07/29/22 Range/Units 18:09 18:16 18:30 WBC 12.2 H (3.8-10.6) k/uL RBC 5.79 (4.30-5.90) m/uL Hgb 17.0 (13.0-17.5) gm/dL Hct 52.2 (39.0-53.0) % MCV 90.1 (80.0-100.0) fL MCH 29.4 (25.0-35.0) pg MCHC 32.6 (31.0-37.0) g/dL RDW 12.7 (11.5-15.5) % Plt Count 372 (150-450) k/uL MPV 8.0 Neutrophils % 81 % Lymphocytes % 6 % Monocytes % 10 % Eosinophils % 1 % Basophils % 1 % Neutrophils # 9.8 H (1.3-7.7) k/uL Lymphocytes # 0.8 L (1.0-4.8) k/uL Monocytes # 1.2 H (0-1.0) k/uL Eosinophils # 0.1 (0-0.7) k/uL Basophils # 0.1 (0-0.2) k/uL PT (9.0-12.0) sec INR (<1.2) VBG pH 7.17 L* (7.31-7.41) VBG pCO2 42 (37-51) mmHg VBG HCO3 15 L (24-28) mmol/L Sodium (137-145) mmol/L Potassium (3.5-5.1) mmol/L Chloride (98-107) mmol/L Carbon Dioxide (22-30) mmol/L Anion Gap mmol/L BUN (9-20) mg/dL Creatinine (0.66-1.25) mg/dL Est GFR (CKD-EPI)AfAm (>60 ml/min/1.73 sqM) Est GFR (CKD-EPI)NonAf (>60 ml/min/1.73 sqM) Glucose (74-99) mg/dL POC Glucose (mg/dL) 323 H (70-110) mg/dL POC Glu Web Ui Developer ID Marylou Tellez Lactic Ac Sepsis Rflx Plasma Lactic Acid Andres (0.7-2.0) mmol/L Calcium (8.4-10.2) mg/dL Magnesium (1.6-2.3) mg/dL Total Bilirubin (0.2-1.3) mg/dL AST (17-59) U/L ALT (4-49) U/L Alkaline Phosphatase (38-126) U/L Troponin I (0.000-0.034) ng/mL Total Protein (6.3-8.2) g/dL Albumin (3.5-5.0) g/dL Lipase (23-300) U/L Acetone, Qual (Negative) 07/29/22 07/29/22 07/29/22 Range/Units 18:30 18:30 18:30 WBC (3.8-10.6) k/uL RBC (4.30-5.90) m/uL Hgb (13.0-17.5) gm/dL Hct (39.0-53.0) % MCV (80.0-100.0) fL MCH (25.0-35.0) pg MCHC (31.0-37.0) g/dL RDW (11.5-15.5) % Plt Count (150-450) k/uL MPV Neutrophils % % Lymphocytes % % Monocytes % % Eosinophils % % Basophils % % Neutrophils # (1.3-7.7) k/uL Lymphocytes # (1.0-4.8) k/uL Monocytes # (0-1.0) k/uL Eosinophils # (0-0.7) k/uL Basophils # (0-0.2) k/uL PT 10.3 (9.0-12.0) sec INR 0.9 (<1.2) VBG pH (7.31-7.41) VBG pCO2 (37-51) mmHg VBG HCO3 (24-28) mmol/L Sodium (137-145) mmol/L Potassium (3.5-5.1) mmol/L Chloride (98-107) mmol/L Carbon Dioxide (22-30) mmol/L Anion Gap mmol/L BUN (9-20) mg/dL Creatinine (0.66-1.25) mg/dL Est GFR (CKD-EPI)AfAm (>60 ml/min/1.73 sqM) Est GFR (CKD-EPI)NonAf (>60 ml/min/1.73 sqM) Glucose (74-99) mg/dL POC Glucose (mg/dL) (70-110) mg/dL POC Glu Web Ui Developer ID Lactic Ac Sepsis Rflx Plasma Lactic Acid Andres 2.6 H* (0.7-2.0) mmol/L Calcium (8.4-10.2) mg/dL Magnesium (1.6-2.3) mg/dL Total Bilirubin (0.2-1.3) mg/dL AST (17-59) U/L ALT (4-49) U/L Alkaline Phosphatase (38-126) U/L Troponin I (0.000-0.034) ng/mL Total Protein (6.3-8.2) g/dL Albumin (3.5-5.0) g/dL Lipase (23-300) U/L Acetone, Qual Positive (Negative) 07/29/22 07/29/22 07/29/22 Range/Units 18:47 18:50 18:50 WBC (3.8-10.6) k/uL RBC (4.30-5.90) m/uL Hgb (13.0-17.5) gm/dL Hct (39.0-53.0) % MCV (80.0-100.0) fL MCH (25.0-35.0) pg MCHC (31.0-37.0) g/dL RDW (11.5-15.5) % Plt Count (150-450) k/uL MPV Neutrophils % % Lymphocytes % % Monocytes % % Eosinophils % % Basophils % % Neutrophils # (1.3-7.7) k/uL Lymphocytes # (1.0-4.8) k/uL Monocytes # (0-1.0) k/uL Eosinophils # (0-0.7) k/uL Basophils # (0-0.2) k/uL PT (9.0-12.0) sec INR (<1.2) VBG pH (7.31-7.41) VBG pCO2 (37-51) mmHg VBG HCO3 (24-28) mmol/L Sodium 141 (137-145) mmol/L Potassium 5.3 H (3.5-5.1) mmol/L Chloride 106 (98-107) mmol/L Carbon Dioxide 13 L (22-30) mmol/L Anion Gap 22 mmol/L BUN 31 H (9-20) mg/dL Creatinine 1.44 H (0.66-1.25) mg/dL Est GFR (CKD-EPI)AfAm 68 (>60 ml/min/1.73 sqM) Est GFR (CKD-EPI)NonAf 59 (>60 ml/min/1.73 sqM) Glucose 214 H (74-99) mg/dL POC Glucose (mg/dL) (70-110) mg/dL POC Glu Web Ui Developer ID Lactic Ac Sepsis Rflx Y Plasma Lactic Acid Andres (0.7-2.0) mmol/L Calcium 8.9 (8.4-10.2) mg/dL Magnesium 2.3 (1.6-2.3) mg/dL Total Bilirubin 0.5 (0.2-1.3) mg/dL AST 23 (17-59) U/L ALT 23 (4-49) U/L Alkaline Phosphatase 127 H (38-126) U/L Troponin I <0.012 (0.000-0.034) ng/mL Total Protein 7.4 (6.3-8.2) g/dL Albumin 4.7 (3.5-5.0) g/dL Lipase 42 (23-300) U/L Acetone, Qual (Negative) 07/29/22 Range/Units 20:48 WBC (3.8-10.6) k/uL RBC (4.30-5.90) m/uL Hgb (13.0-17.5) gm/dL Hct (39.0-53.0) % MCV (80.0-100.0) fL MCH (25.0-35.0) pg MCHC (31.0-37.0) g/dL RDW (11.5-15.5) % Plt Count (150-450) k/uL MPV Neutrophils % % Lymphocytes % % Monocytes % % Eosinophils % % Basophils % % Neutrophils # (1.3-7.7) k/uL Lymphocytes # (1.0-4.8) k/uL Monocytes # (0-1.0) k/uL Eosinophils # (0-0.7) k/uL Basophils # (0-0.2) k/uL PT (9.0-12.0) sec INR (<1.2) VBG pH (7.31-7.41) VBG pCO2 (37-51) mmHg VBG HCO3 (24-28) mmol/L Sodium (137-145) mmol/L Potassium (3.5-5.1) mmol/L Chloride (98-107) mmol/L Carbon Dioxide (22-30) mmol/L Anion Gap mmol/L BUN (9-20) mg/dL Creatinine (0.66-1.25) mg/dL Est GFR (CKD-EPI)AfAm (>60 ml/min/1.73 sqM) Est GFR (CKD-EPI)NonAf (>60 ml/min/1.73 sqM) Glucose (74-99) mg/dL POC Glucose (mg/dL) (70-110) mg/dL POC Glu Web Ui Developer ID Lactic Ac Sepsis Rflx Plasma Lactic Acid Andres 0.9 (0.7-2.0) mmol/L Calcium (8.4-10.2) mg/dL Magnesium (1.6-2.3) mg/dL Total Bilirubin (0.2-1.3) mg/dL AST (17-59) U/L ALT (4-49) U/L Alkaline Phosphatase (38-126) U/L Troponin I (0.000-0.034) ng/mL Total Protein (6.3-8.2) g/dL Albumin (3.5-5.0) g/dL Lipase (23-300) U/L Acetone, Qual (Negative) - EKG Data -: EKG Interpreted by Me EKG Comments: EKG done at 1817 in the ED attending physician reveals sinus tachycardia with short CA interval, normal axis, normal intervals otherwise, normal QRS morphology, no evidence of acute ST or T-wave changes. CA interval 112 ms. When compared to the previous study from 2019 there is no significant change other than the slightly faster heart rate - Radiology Data Radiology results: report reviewed, image reviewed Critical Care Time Critical Care Time: Yes Total Critical Care Time: 35 Critical Care Time: Diabetic ketoacidosis, multiple re-evaluations, evaluation of patient's response to treatment, evaluation and diagnostic test. Disposition Clinical Impression: Diabetic ketoacidosis, COVID-19, Acute kidney injury Disposition: ADMITTED IP TO THIS HOSP Condition: Fair Is patient prescribed a controlled substance at d/c from ED?: No Referrals: Issa Bean DO [Primary Care Provider] - 1-2 days Decision to Admit Reason: Admit from EC Decision Time: 20:10
[2022-07-29 18:36] LABS: Basophils # (A) 0.1 k/uL (0-0.2); Basophils % (A) 1 %; Eosinophils # (A) 0.1 k/uL (0-0.7); Eosinophils % (A) 1 %; HCT 52.2 % (39.0-53.0); Lymphocytes # (A) 0.8 k/uL (1.0-4.8); Lymphocytes % (A) 6 %; MCH 29.4 pg (25.0-35.0); MCHC 32.6 g/dL (31.0-37.0); MCV 90.1 fL (80.0-100.0); Monocytes # (A) 1.2 k/uL (0-1.0); Monocytes % (A) 10 %; Neutrophils # (A) 9.8 k/uL (1.3-7.7); Neutrophils % (A) 81 %; Platelet Count 372 k/uL (150-450); RBC 5.79 m/uL (4.30-5.90); RDW 12.7 % (11.5-15.5); WBC 12.2 k/uL (3.8-10.6)
[2022-07-29 18:53] LABS: INR 0.9 (<1.2); Prothrombin Time 10.3 sec (9.0-12.0)
--- NOTE | 2022-07-29 19:00 | XR ---
EXAMINATION TYPE: XR chest 1V portable DATE OF EXAM: 07/29/2022 COMPARISON: NONE Not available HISTORY: Abdominal pain TECHNIQUE: Single view FINDINGS: Heart and mediastinum are normal. Lungs are clear. Diaphragm is normal. Bony thorax is inta ct. IMPRESSION: No active cardiopulmonary disease.
[2022-07-29 20:37] LABS: Albumin 4.7 g/dL (3.5-5.0); Calcium 8.9 mg/dL (8.4-10.2); Magnesium 2.3 mg/dL (1.6-2.3); Potassium 5.3 mmol/L (3.5-5.1); Total Bilirubin 0.5 mg/dL (0.2-1.3); Total Protein 7.4 g/dL (6.3-8.2)
[2022-07-29 20:37] LABS: VBG PH 7.17 (7.31-7.41)
[2022-07-29] MEDS: INSULIN REGULAR 100 UNIT in SODIUM CHLORIDE 0.9% 100 ML IV SCH (21:43)
[2022-07-29 21:49] LABS: Glucose,Whole Blood 146 mg/dL (70-110)
[2022-07-29 21:51] LABS: Appearance,Urine Cloudy (Clear); Bilirubin,Urine 1+ (Negative); Blood,Urine Trace (Negative); Color,Urine Yellow; Glucose,Urine (UA) 3+ (Negative); Granular Casts,Urine 1 /lpf (0); Hyaline Casts,Urine 21 /lpf (0-2); Leukocyte Esterase,Urine Negative (Negative); Mucus,Urine Occasional /hpf; Nitrite,Urine Negative (Negative); Protein,Urine 2+ (Negative); RBC,Urine 3 /hpf (0-5); Specific Gravity,Urine 1.015 (1.001-1.035); WBC,Urine 6 /hpf (0-5)
[2022-07-29] MEDS: SODIUM CHLORIDE 0.9% 1,000 ML IV SCH (21:53)
[2022-07-29 21:54] LABS: Ketones,Urine 4+ (Negative)
[2022-07-29 22:27] LABS: Glucose,Whole Blood 153 mg/dL (70-110)
[2022-07-29 23:02] LABS: Glucose,Whole Blood 117 mg/dL (70-110)
[2022-07-29 23:45] LABS: Glucose,Whole Blood 101 mg/dL (70-110)
[2022-07-30 00:26] LABS: Glucose,Whole Blood 104 mg/dL (70-110)
[2022-07-30 01:00] LABS: Glucose,Whole Blood 131 mg/dL (70-110)
[2022-07-30 01:11] LABS: African American GFR (CKD) >90 (>60 ml/min/1.73 sqM); Anion Gap 19 mmol/L; Blood Urea Nitrogen 28 mg/dL (9-20); Carbon Dioxide 15 mmol/L (22-30); Chloride 108 mmol/L (98-107); Glucose 123 mg/dL (74-99); Non-African American GFR(CKD) >90 (>60 ml/min/1.73 sqM); Phosphorus 3.4 mg/dL (2.5-4.5); Potassium 4.8 mmol/L (3.5-5.1); Sodium 142 mmol/L (137-145)
[2022-07-30 02:10] LABS: Glucose,Whole Blood 191 mg/dL (70-110)
[2022-07-30 03:06] LABS: Glucose,Whole Blood 229 mg/dL (70-110)
[2022-07-30] MEDS: SODIUM CHLORIDE 0.9% 1,000 ML IV SCH (03:43)
[2022-07-30 04:03] LABS: Glucose,Whole Blood 208 mg/dL (70-110)
[2022-07-30] MEDS: D5-0.45% NACL WITH KCL 20MEQ/L 1,000 ML IV SCH ×3 (04:07→17:58)
[2022-07-30 04:27] LABS: African American GFR (CKD) >90 (>60 ml/min/1.73 sqM); Anion Gap 21 mmol/L; Blood Urea Nitrogen 23 mg/dL (9-20); Carbon Dioxide 11 mmol/L (22-30); Chloride 106 mmol/L (98-107); Glucose 241 mg/dL (74-99); Non-African American GFR(CKD) >90 (>60 ml/min/1.73 sqM); Phosphorus 2.6 mg/dL (2.5-4.5); Potassium 4.7 mmol/L (3.5-5.1); Sodium 138 mmol/L (137-145)
[2022-07-30 05:06] LABS: Glucose,Whole Blood 247 mg/dL (70-110)
[2022-07-30 05:59] LABS: Glucose,Whole Blood 257 mg/dL (70-110)
[2022-07-30 07:05] LABS: Glucose,Whole Blood 246 mg/dL (70-110)
[2022-07-30 07:59] LABS: Glucose,Whole Blood 269 mg/dL (70-110)
[2022-07-30 08:59] LABS: Glucose,Whole Blood 252 mg/dL (70-110)
[2022-07-30 09:50] LABS: African American GFR (CKD) >90 (>60 ml/min/1.73 sqM); Anion Gap 16 mmol/L; Blood Urea Nitrogen 17 mg/dL (9-20); Carbon Dioxide 15 mmol/L (22-30); Chloride 104 mmol/L (98-107); Non-African American GFR(CKD) >90 (>60 ml/min/1.73 sqM); Phosphorus 2.2 mg/dL (2.5-4.5); Potassium 3.9 mmol/L (3.5-5.1); Sodium 135 mmol/L (137-145)
[2022-07-30 09:59] LABS: Glucose,Whole Blood 239 mg/dL (70-110)
[2022-07-30] MEDS: lisinopriL 10 MG TAB PO SCH (10:07)
[2022-07-30] MEDS: busPIRone HCl 5 MG TAB PO SCH ×2 (10:07→21:08)
[2022-07-30] MEDS: HYDROCORTISONE 10 MG TAB PO SCH ×2 (10:13→21:08)
[2022-07-30] MEDS ORDERED: ONDANSETRON 4 MG/2 ML VIAL IVP PRN (10:35)
[2022-07-30] MEDS ORDERED: NALOXONE 0.4 MG/ML 1 ML VIAL IV PRN (10:35)
[2022-07-30] MEDS ORDERED: ACETAMINOPHEN TAB 325 MG TAB PO PRN (10:35)
[2022-07-30] MEDS ORDERED: MELATONIN 3 MG TABLET PO PRN (10:35)
--- NOTE | 2022-07-30 10:54 | P.HPIM ---
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 Patient kids were diagnosed with COVID-19 infection over the weekend. Following that patient tested himself and was found to be COVID-19 positive on Thursday. Patient has been having fatigue associated nausea and vomiting. Patient is on insulin pump and denied there was any thing wrong with the pump. Patient denied any abdominal pain. There was no complaint of shortness of breath. Denies any fever or chills. Because of this nausea and vomiting patient came to the ER of [facility]. In the ER, patient was worked up initial workup was significant for patient having potassium level of 5.3, anion gap of 22 and blood sugars 323. Patient was admitted under DKA protocol to hospitalist service REVIEW OF SYSTEMS: CONSTITUTIONAL: No fever, no malaise, no fatigue. HEENT: No recent visual problems or hearing problems. Denied any sore throat. CARDIOVASCULAR: No chest pain, orthopnea, PND, no palpitations, no syncope. PULMONARY: No shortness of breath, no cough, no hemoptysis. GASTROINTESTINAL: As mentioned in the HPI NEUROLOGICAL: No headaches, no weakness, no numbness. HEMATOLOGICAL: Denies any bleeding or petechiae. GENITOURINARY: Denies any burning micturition, frequency, or urgency. MUSCULOSKELETAL/RHEUMATOLOGICAL: Denies any joint pain, swelling, or any muscle pain. ENDOCRINE: Denies any polyuria or polydipsia. The rest of the 14-point review of systems is negative. PHYSICAL EXAMINATION: GENERAL: The patient is alert and oriented x3, not in any acute distress. Well developed, well nourished. HEENT: Pupils are round and equally reacting to light. EOMI. No scleral icterus. No conjunctival pallor. Normocephalic, atraumatic. No pharyngeal erythema. No thyromegaly. CARDIOVASCULAR: S1 and S2 present. No murmurs, rubs, or gallops. PULMONARY: Chest is clear to auscultation, no wheezing or crackles. ABDOMEN: Soft, nontender, nondistended, normoactive bowel sounds. No palpable organomegaly. MUSCULOSKELETAL: No joint swelling or deformity. EXTREMITIES: No cyanosis, clubbing, or pedal edema. NEUROLOGICAL: Gross neurological examination did not reveal any focal deficits. SKIN: No rashes. 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 Monitor CBC Continue insulin drip Continue D5 half normal saline Once anion gap closes, we'll switch patient to subcu insulin the form of Levemir 10 units twice a day and sliding scale insulin moderate intensity Resume patient's home medications of hydrocortisone and fludrocortisone Continue antiemetics Continue droplet plus precautions for COVID-19 infection, currently does not require any oxygen, does not meet criteria for COVID-19 infection treatment in the form of steroids and remdesevir DVT prophylaxis: Lovenox Past Medical History Past Medical History: Diabetes Mellitus Additional Past Medical History / Comment(s): having abdominal pain, states has cyst on kidney; Type one diabetic; Addisons disease History of Any Multi-Drug Resistant Organisms: None Reported Past Surgical History: Tonsillectomy Additional Past Surgical History / Comment(s): benign bone cyst removed 20 years ago, from left femur Past Anesthesia/Blood Transfusion Reactions: No Reported Reaction Additional Past Anesthesia/Blood Transfusion Reaction / Comment(s): difficulty urinating post bone cyst removal Past Psychological History: Anxiety Smoking Status: Former smoker Past Alcohol Use History: Occasional Additional Past Alcohol Use History / Comment(s): smokes less than 1 ppd from age 14 (1993) Past Drug Use History: Marijuana - Past Family History Father Family Medical History: Cancer Additional Family Medical History / Comment(s): lymphoma Medications and Allergies Home Medications Medication Instructions Recorded Confirmed Type EPINEPHrine (Auto Inject) [Epipen] 0.3 mg IM ONCE PRN 09/20/19 07/29/22 History Fludrocortisone [Florinef] 0.1 mg PO HS 09/20/19 07/29/22 History Insulin Aspart (For Pump) [NovoLOG 0.01 unit SQ-PUMP CONTINUOUS 09/20/19 07/29/22 History (For Pump)] ALPRAZolam [Xanax XR] 0.5 mg PO DAILY 07/29/22 07/29/22 History Atorvastatin [Lipitor] 20 mg PO HS 07/29/22 07/29/22 History Hydrocortisone [Cortef] 10 mg PO BID 07/29/22 07/29/22 History Mirtazapine [Remeron] 45 mg PO HS 07/29/22 07/29/22 History busPIRone HCL 15 mg PO BID 07/29/22 07/29/22 History lisinopriL [Prinivil] 10 mg PO DAILY 07/29/22 07/29/22 History Allergies Allergy/AdvReac Type Severity Reaction Status Date / Time shellfish derived [Shellfish] Allergy Anaphylaxis Verified 07/29/22 19:48 venom-honey bee Allergy Unknown Verified 07/29/22 19:48 [bee venom (honey bee)] Physical Exam Vitals: Vital Signs Temp Pulse Pulse Resp BP BP Pulse Ox 07/30/22 08:00 97.8 F 74 17 128/75 97 07/30/22 03:52 98.6 F 110 H 18 135/62 98 07/30/22 02:00 112 H 18 07/30/22 01:41 112 H 18 07/30/22 01:16 98.2 F 112 H 18 140/81 100 07/30/22 00:59 73 16 139/71 97 07/30/22 00:00 72 16 134/73 96 07/29/22 23:00 89 17 137/70 94 L 07/29/22 22:00 72 16 133/68 98 07/29/22 20:00 89 16 137/77 98 07/29/22 19:30 140/87 07/29/22 18:09 97.6 F 118 H 16 138/127 99 07/29/22 15:52 97.7 F 139 H 22 130/81 99 Intake and Output 07/29/22 07/30/22 07/30/22 22:59 06:59 14:59 Intake Total 5.127 6.020 6.778 Balance 5.127 6.020 6.778 Intake: Intake, IV Titration 5.127 6.020 6.778 Amount Insulin Regular 100 unit 5.127 6.020 6.778 In Sodium Chloride 0.9% 100 ml @ 0.1 UNITS/KG/HR 7.788 mls/hr IV .[id number] [facility] Rx#:[id number] Other: Voiding Method Toilet # Voids 1 Weight 77.111 kg 77.111 kg Results CBC & Chem 7: 07/29/22 18:30 07/30/22 09:10 Labs: Abnormal Lab Results - Last 24 Hours (Table) 07/29/22 07/29/22 07/29/22 Range/Units 18:09 18:16 18:30 WBC 12.2 H (3.8-10.6) k/uL Neutrophils # 9.8 H (1.3-7.7) k/uL Lymphocytes # 0.8 L (1.0-4.8) k/uL Monocytes # 1.2 H (0-1.0) k/uL VBG pH 7.17 L* (7.31-7.41) VBG HCO3 15 L (24-28) mmol/L Sodium (137-145) mmol/L Potassium (3.5-5.1) mmol/L Chloride (98-107) mmol/L Carbon Dioxide (22-30) mmol/L BUN (9-20) mg/dL Creatinine (0.66-1.25) mg/dL Glucose (74-99) mg/dL POC Glucose (mg/dL) 323 H (70-110) mg/dL Hemoglobin A1c (0.0-6.0) % Plasma Lactic Acid Andres (0.7-2.0) mmol/L Phosphorus (2.5-4.5) mg/dL Alkaline Phosphatase (38-126) U/L Procalcitonin (0.02-0.09) ng/mL Urine Protein (Negative) Urine Glucose (UA) (Negative) Urine Ketones (Negative) Urine Blood (Negative) Urine Bilirubin (Negative) Urine WBC (0-5) /hpf Hyaline Casts (0-2) /lpf Urine Mucus (None) /hpf Coronavirus (PCR) (Not Detectd) 07/29/22 07/29/22 07/29/22 Range/Units 18:30 18:30 18:50 WBC (3.8-10.6) k/uL Neutrophils # (1.3-7.7) k/uL Lymphocytes # (1.0-4.8) k/uL Monocytes # (0-1.0) k/uL VBG pH (7.31-7.41) VBG HCO3 (24-28) mmol/L Sodium (137-145) mmol/L Potassium 5.3 H (3.5-5.1) mmol/L Chloride (98-107) mmol/L Carbon Dioxide 13 L (22-30) mmol/L BUN 31 H (9-20) mg/dL Creatinine 1.44 H (0.66-1.25) mg/dL Glucose 214 H (74-99) mg/dL POC Glucose (mg/dL) (70-110) mg/dL Hemoglobin A1c (0.0-6.0) % Plasma Lactic Acid Andres 2.6 H* (0.7-2.0) mmol/L Phosphorus (2.5-4.5) mg/dL Alkaline Phosphatase 127 H (38-126) U/L Procalcitonin 0.92 H (0.02-0.09) ng/mL Urine Protein (Negative) Urine Glucose (UA) (Negative) Urine Ketones (Negative) Urine Blood (Negative) Urine Bilirubin (Negative) Urine WBC (0-5) /hpf Hyaline Casts (0-2) /lpf Urine Mucus (None) /hpf Coronavirus (PCR) (Not Detectd) 07/29/22 07/29/22 07/29/22 Range/Units 21:31 21:47 22:17 WBC (3.8-10.6) k/uL Neutrophils # (1.3-7.7) k/uL Lymphocytes # (1.0-4.8) k/uL Monocytes # (0-1.0) k/uL VBG pH (7.31-7.41) VBG HCO3 (24-28) mmol/L Sodium (137-145) mmol/L Potassium (3.5-5.1) mmol/L Chloride (98-107) mmol/L Carbon Dioxide (22-30) mmol/L BUN (9-20) mg/dL Creatinine (0.66-1.25) mg/dL Glucose (74-99) mg/dL POC Glucose (mg/dL) 146 H (70-110) mg/dL Hemoglobin A1c (0.0-6.0) % Plasma Lactic Acid Andres (0.7-2.0) mmol/L Phosphorus (2.5-4.5) mg/dL Alkaline Phosphatase (38-126) U/L Procalcitonin (0.02-0.09) ng/mL Urine Protein 2+ H (Negative) Urine Glucose (UA) 3+ H (Negative) Urine Ketones 4+ H (Negative) Urine Blood Trace H (Negative) Urine Bilirubin 1+ H (Negative) Urine WBC 6 H (0-5) /hpf Hyaline Casts 21 H (0-2) /lpf Urine Mucus Occasional H (None) /hpf Coronavirus (PCR) Detected A (Not Detectd) 07/29/22 07/29/22 07/30/22 Range/Units 22:26 23:00 00:29 WBC (3.8-10.6) k/uL Neutrophils # (1.3-7.7) k/uL Lymphocytes # (1.0-4.8) k/uL Monocytes # (0-1.0) k/uL VBG pH (7.31-7.41) VBG HCO3 (24-28) mmol/L Sodium (137-145) mmol/L Potassium (3.5-5.1) mmol/L Chloride 108 H (98-107) mmol/L Carbon Dioxide 15 L (22-30) mmol/L BUN 28 H (9-20) mg/dL Creatinine (0.66-1.25) mg/dL Glucose 123 H (74-99) mg/dL POC Glucose (mg/dL) 153 H 117 H (70-110) mg/dL Hemoglobin A1c (0.0-6.0) % Plasma Lactic Acid Andres (0.7-2.0) mmol/L Phosphorus (2.5-4.5) mg/dL Alkaline Phosphatase (38-126) U/L Procalcitonin (0.02-0.09) ng/mL Urine Protein (Negative) Urine Glucose (UA) (Negative) Urine Ketones (Negative) Urine Blood (Negative) Urine Bilirubin (Negative) Urine WBC (0-5) /hpf Hyaline Casts (0-2) /lpf Urine Mucus (None) /hpf Coronavirus (PCR) (Not Detectd) 07/30/22 07/30/22 07/30/22 Range/Units 00:59 02:08 03:00 WBC (3.8-10.6) k/uL Neutrophils # (1.3-7.7) k/uL Lymphocytes # (1.0-4.8) k/uL Monocytes # (0-1.0) k/uL VBG pH (7.31-7.41) VBG HCO3 (24-28) mmol/L Sodium (137-145) mmol/L Potassium (3.5-5.1) mmol/L Chloride (98-107) mmol/L Carbon Dioxide (22-30) mmol/L BUN (9-20) mg/dL Creatinine (0.66-1.25) mg/dL Glucose (74-99) mg/dL POC Glucose (mg/dL) 131 H 191 H 229 H (70-110) mg/dL Hemoglobin A1c (0.0-6.0) % Plasma Lactic Acid Andres (0.7-2.0) mmol/L Phosphorus (2.5-4.5) mg/dL Alkaline Phosphatase (38-126) U/L Procalcitonin (0.02-0.09) ng/mL Urine Protein (Negative) Urine Glucose (UA) (Negative) Urine Ketones (Negative) Urine Blood (Negative) Urine Bilirubin (Negative) Urine WBC (0-5) /hpf Hyaline Casts (0-2) /lpf Urine Mucus (None) /hpf Coronavirus (PCR) (Not Detectd) 07/30/22 07/30/22 07/30/22 Range/Units 04:02 04:05 04:05 WBC (3.8-10.6) k/uL Neutrophils # (1.3-7.7) k/uL Lymphocytes # (1.0-4.8) k/uL Monocytes # (0-1.0) k/uL VBG pH (7.31-7.41) VBG HCO3 (24-28) mmol/L Sodium (137-145) mmol/L Potassium (3.5-5.1) mmol/L Chloride (98-107) mmol/L Carbon Dioxide 11 L (22-30) mmol/L BUN 23 H (9-20) mg/dL Creatinine (0.66-1.25) mg/dL Glucose 241 H (74-99) mg/dL POC Glucose (mg/dL) 208 H (70-110) mg/dL Hemoglobin A1c 11.3 H (0.0-6.0) % Plasma Lactic Acid Andres (0.7-2.0) mmol/L Phosphorus (2.5-4.5) mg/dL Alkaline Phosphatase (38-126) U/L Procalcitonin (0.02-0.09) ng/mL Urine Protein (Negative) Urine Glucose (UA) (Negative) Urine Ketones (Negative) Urine Blood (Negative) Urine Bilirubin (Negative) Urine WBC (0-5) /hpf Hyaline Casts (0-2) /lpf Urine Mucus (None) /hpf Coronavirus (PCR) (Not Detectd) 07/30/22 07/30/22 07/30/22 Range/Units 05:05 05:59 07:04 WBC (3.8-10.6) k/uL Neutrophils # (1.3-7.7) k/uL Lymphocytes # (1.0-4.8) k/uL Monocytes # (0-1.0) k/uL VBG pH (7.31-7.41) VBG HCO3 (24-28) mmol/L Sodium (137-145) mmol/L Potassium (3.5-5.1) mmol/L Chloride (98-107) mmol/L Carbon Dioxide (22-30) mmol/L BUN (9-20) mg/dL Creatinine (0.66-1.25) mg/dL Glucose (74-99) mg/dL POC Glucose (mg/dL) 247 H 257 H 246 H (70-110) mg/dL Hemoglobin A1c (0.0-6.0) % Plasma Lactic Acid Andres (0.7-2.0) mmol/L Phosphorus (2.5-4.5) mg/dL Alkaline Phosphatase (38-126) U/L Procalcitonin (0.02-0.09) ng/mL Urine Protein (Negative) Urine Glucose (UA) (Negative) Urine Ketones (Negative) Urine Blood (Negative) Urine Bilirubin (Negative) Urine WBC (0-5) /hpf Hyaline Casts (0-2) /lpf Urine Mucus (None) /hpf Coronavirus (PCR) (Not Detectd) 07/30/22 07/30/22 07/30/22 Range/Units 07:57 08:58 09:10 WBC (3.8-10.6) k/uL Neutrophils # (1.3-7.7) k/uL Lymphocytes # (1.0-4.8) k/uL Monocytes # (0-1.0) k/uL VBG pH (7.31-7.41) VBG HCO3 (24-28) mmol/L Sodium 135 L (137-145) mmol/L Potassium (3.5-5.1) mmol/L Chloride (98-107) mmol/L Carbon Dioxide 15 L (22-30) mmol/L BUN (9-20) mg/dL Creatinine 0.62 L (0.66-1.25) mg/dL Glucose (74-99) mg/dL POC Glucose (mg/dL) 269 H 252 H (70-110) mg/dL Hemoglobin A1c (0.0-6.0) % Plasma Lactic Acid Andres (0.7-2.0) mmol/L Phosphorus 2.2 L (2.5-4.5) mg/dL Alkaline Phosphatase (38-126) U/L Procalcitonin (0.02-0.09) ng/mL Urine Protein (Negative) Urine Glucose (UA) (Negative) Urine Ketones (Negative) Urine Blood (Negative) Urine Bilirubin (Negative) Urine WBC (0-5) /hpf Hyaline Casts (0-2) /lpf Urine Mucus (None) /hpf Coronavirus (PCR) (Not Detectd) 07/30/22 Range/Units 09:57 WBC (3.8-10.6) k/uL Neutrophils # (1.3-7.7) k/uL Lymphocytes # (1.0-4.8) k/uL Monocytes # (0-1.0) k/uL VBG pH (7.31-7.41) VBG HCO3 (24-28) mmol/L Sodium (137-145) mmol/L Potassium (3.5-5.1) mmol/L Chloride (98-107) mmol/L Carbon Dioxide (22-30) mmol/L BUN (9-20) mg/dL Creatinine (0.66-1.25) mg/dL Glucose (74-99) mg/dL POC Glucose (mg/dL) 239 H (70-110) mg/dL Hemoglobin A1c (0.0-6.0) % Plasma Lactic Acid Andres (0.7-2.0) mmol/L Phosphorus (2.5-4.5) mg/dL Alkaline Phosphatase (38-126) U/L Procalcitonin (0.02-0.09) ng/mL Urine Protein (Negative) Urine Glucose (UA) (Negative) Urine Ketones (Negative) Urine Blood (Negative) Urine Bilirubin (Negative) Urine WBC (0-5) /hpf Hyaline Casts (0-2) /lpf Urine Mucus (None) /hpf Coronavirus (PCR) (Not Detectd) Thrombosis Risk Factor Assmnt - Choose All That Apply Any of the Below Risk Factors Present?: Yes Each Factor Represents 1 point: Age 41-60 years Other Risk Factors: No Other congenital or acquired thrombophilia - If yes, enter type in comment: No Thrombosis Risk Factor Assessment Total Risk Factor Score: 1 Thrombosis Risk Factor Assessment Level: Low Risk
[2022-07-30] MEDS ORDERED: Phosphorus Replacement Protoco 1 EACH MISC MISCELLANE PRN (10:55)
[2022-07-30 10:59] LABS: Glucose,Whole Blood 208 mg/dL (70-110)
[2022-07-30] MEDS ORDERED: POTASSIUM PHOSPHATE 10 MMOL in SODIUM CHLORIDE 0.9% 250 ML IV ONE ×2 (11:00→17:30)
[2022-07-30 11:17] LABS: Basophils % (A) 0 %; Eosinophils % (A) 0 %; HCT 41.7 % (39.0-53.0); Lymphocytes # (A) 1.4 k/uL (1.0-4.8); Lymphocytes % (A) 17 %; MCHC 33.2 g/dL (31.0-37.0); MCV 90.4 fL (80.0-100.0); Mean Platelet Volume 8.2; Monocytes # (A) 0.6 k/uL (0-1.0); Monocytes % (A) 7 %; Neutrophils # (A) 6.2 k/uL (1.3-7.7); Neutrophils % (A) 73 %; Platelet Count 291 k/uL (150-450); RBC 4.62 m/uL (4.30-5.90); RDW 13.3 % (11.5-15.5); WBC 8.4 k/uL (3.8-10.6)
[2022-07-30 11:25] LABS: HGB 13.8 gm/dL (13.0-17.5)
[2022-07-30] MEDS: ENOXAPARIN 40 MG/0.4 ML SYRINGE SQ SCH (11:38)
[2022-07-30 12:00] LABS: Glucose,Whole Blood 190 mg/dL (70-110)
[2022-07-30 12:59] LABS: Glucose,Whole Blood 196 mg/dL (70-110)
[2022-07-30 13:22] LABS: African American GFR (CKD) >90 (>60 ml/min/1.73 sqM); Anion Gap 13 mmol/L; Blood Urea Nitrogen 15 mg/dL (9-20); Carbon Dioxide 19 mmol/L (22-30); Chloride 104 mmol/L (98-107); Non-African American GFR(CKD) >90 (>60 ml/min/1.73 sqM); Phosphorus 1.6 mg/dL (2.5-4.5); Potassium 4.1 mmol/L (3.5-5.1); Sodium 136 mmol/L (137-145)
[2022-07-30 13:30] VITALS: BMI 23.0
[2022-07-30 14:00] LABS: Glucose,Whole Blood 156 mg/dL (70-110)
[2022-07-30 14:59] LABS: Glucose,Whole Blood 268 mg/dL (70-110)
[2022-07-30 16:00] LABS: Glucose,Whole Blood 294 mg/dL (70-110)
[2022-07-30 17:00] LABS: African American GFR (CKD) >90 (>60 ml/min/1.73 sqM); Anion Gap 11 mmol/L; Blood Urea Nitrogen 12 mg/dL (9-20); Carbon Dioxide 19 mmol/L (22-30); Chloride 103 mmol/L (98-107); Non-African American GFR(CKD) >90 (>60 ml/min/1.73 sqM); Phosphorus 2.2 mg/dL (2.5-4.5); Potassium 4.4 mmol/L (3.5-5.1); Sodium 133 mmol/L (137-145)
[2022-07-30 17:07] LABS: Glucose,Whole Blood 247 mg/dL (70-110)
[2022-07-30] MEDS: INSULIN REGULAR 100 UNIT in SODIUM CHLORIDE 0.9% 100 ML IV SCH ×2 (17:52→23:46)
[2022-07-30 17:57] LABS: Glucose,Whole Blood 203 mg/dL (70-110)
[2022-07-30 19:20] LABS: Glucose,Whole Blood 151 mg/dL (70-110)
[2022-07-30 20:00] LABS: Glucose,Whole Blood 138 mg/dL (70-110)
[2022-07-30] MEDS ORDERED: FLUDROCORTISONE 0.1 MG TAB PO SCH (21:00)
[2022-07-30] MEDS ORDERED: MIRTAZAPINE 45 MG TABLET PO SCH (21:00)
[2022-07-30] MEDS ORDERED: ATORVASTATIN 20 MG TAB PO SCH (21:00)
[2022-07-30 21:07] LABS: African American GFR (CKD) >90 (>60 ml/min/1.73 sqM); Anion Gap 10 mmol/L; Blood Urea Nitrogen 10 mg/dL (9-20); Carbon Dioxide 21 mmol/L (22-30); Chloride 104 mmol/L (98-107); Glucose 137 mg/dL (74-99); Non-African American GFR(CKD) >90 (>60 ml/min/1.73 sqM); Phosphorus 1.9 mg/dL (2.5-4.5); Potassium 3.6 mmol/L (3.5-5.1); Sodium 135 mmol/L (137-145)
[2022-07-30 21:24] LABS: Glucose,Whole Blood 123 mg/dL (70-110)
[2022-07-30 22:12] LABS: Glucose,Whole Blood 187 mg/dL (70-110)
[2022-07-30] MEDS: INSULIN DETEMIR (LEVEMIR) 100 UNIT/ML SYR SQ SCH (22:38)
[2022-07-30 23:15] LABS: Glucose,Whole Blood 156 mg/dL (70-110)
[2022-07-30] MEDS: POTASSIUM PHOSPHATE 10 MMOL in SODIUM CHLORIDE 0.9% 250 ML IV SCH (23:40)
[2022-07-31] MEDS ORDERED: D5-0.45% NACL WITH KCL 20MEQ/L 1,000 ML IV SCH
[2022-07-31 00:17] LABS: Glucose,Whole Blood 200 mg/dL (70-110)
[2022-07-31] MEDS: POTASSIUM PHOSPHATE 10 MMOL in SODIUM CHLORIDE 0.9% 250 ML IV SCH (01:27)
[2022-07-31 02:01] LABS: Glucose,Whole Blood 216 mg/dL (70-110)
[2022-07-31] MEDS: INSULIN ASPART (NovoLOG) 100 UNIT/ML VIAL SQ SCH ×3 (02:02→10:21)
[2022-07-31 04:05] LABS: Glucose,Whole Blood 200 mg/dL (70-110)
[2022-07-31 04:46] VITALS: RESP 16
[2022-07-31 06:00] LABS: Glucose,Whole Blood 197 mg/dL (70-110)
[2022-07-31] MEDS: ENOXAPARIN 40 MG/0.4 ML SYRINGE SQ SCH (07:30)
[2022-07-31] MEDS: ALPRAZolam 0.25 MG TAB PO SCH ×2 (07:30→12:13)
[2022-07-31] MEDS: INSULIN DETEMIR (LEVEMIR) 100 UNIT/ML SYR SQ SCH (07:30)
[2022-07-31] MEDS: busPIRone HCl 5 MG TAB PO SCH (07:30)
[2022-07-31] MEDS: lisinopriL 10 MG TAB PO SCH (07:30)
[2022-07-31] MEDS: HYDROCORTISONE 10 MG TAB PO SCH (07:31)
[2022-07-31 07:36] VITALS: TEMP 98.2
[2022-07-31 09:04] LABS: Basophils % (A) 0 %; Eosinophils # (A) 0.1 k/uL (0-0.7); Eosinophils % (A) 1 %; HCT 40.3 % (39.0-53.0); HGB 13.2 gm/dL (13.0-17.5); Lymphocytes # (A) 1.7 k/uL (1.0-4.8); Lymphocytes % (A) 28 %; MCH 29.3 pg (25.0-35.0); MCHC 32.6 g/dL (31.0-37.0); MCV 89.9 fL (80.0-100.0); Mean Platelet Volume 7.8; Monocytes # (A) 0.5 k/uL (0-1.0); Monocytes % (A) 8 %; Neutrophils # (A) 3.5 k/uL (1.3-7.7); Neutrophils % (A) 60 %; Platelet Count 261 k/uL (150-450); RBC 4.49 m/uL (4.30-5.90); RDW 13.3 % (11.5-15.5); WBC 5.9 k/uL (3.8-10.6)
[2022-07-31 09:29] LABS: ALT 19 U/L (4-49); AST 24 U/L (17-59); African American GFR (CKD) >90 (>60 ml/min/1.73 sqM); Albumin 3.3 g/dL (3.5-5.0); Alkaline Phosphatase 101 U/L (38-126); Anion Gap 13 mmol/L; Blood Urea Nitrogen 5 mg/dL (9-20); Calcium 8.5 mg/dL (8.4-10.2); Carbon Dioxide 21 mmol/L (22-30); Chloride 103 mmol/L (98-107); Glucose 221 mg/dL (74-99); Non-African American GFR(CKD) >90 (>60 ml/min/1.73 sqM); Phosphorus 2.7 mg/dL (2.5-4.5); Potassium 3.6 mmol/L (3.5-5.1); Sodium 137 mmol/L (137-145); Total Bilirubin 0.7 mg/dL (0.2-1.3); Total Protein 5.6 g/dL (6.3-8.2)
[2022-07-31 11:00] VITALS: BP 132/84; PULSE 82
[2022-07-31 11:42] LABS: Glucose,Whole Blood 244 mg/dL (70-110)
--- NOTE | 2022-07-31 12:14 | P.DS ---
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 Patient kids were diagnosed with COVID-19 infection over the weekend. Following that patient tested himself and was found to be COVID-19 positive on Thursday. Patient has been having fatigue associated nausea and vomiting. Patient is on insulin pump and denied there was any thing wrong with the pump. Patient denied any abdominal pain. There was no complaint of shortness of breath. Denies any fever or chills. Because of this nausea and vomiting patient came to the ER of [facility]. In the ER, patient was worked up initial workup was significant for patient having potassium level of 5.3, anion gap of 22 and blood sugars 323. Patient was admitted under DKA protocol to hospitalist service. Patient was kept on insulin drip, anion gap closed, patient was switched to subcu insulin. Currently tolerating regular diet, being discharged back on his insulin pump. 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 Well developed, well nourished. HEENT: Pupils are round and equally reacting to light. EOMI. No scleral icterus. No conjunctival pallor. Normocephalic, atraumatic. No pharyngeal erythema. No thyromegaly. CARDIOVASCULAR: S1 and S2 present. No murmurs, rubs, or gallops. PULMONARY: Chest is clear to auscultation, no wheezing or crackles. ABDOMEN: Soft, nontender, nondistended, normoactive bowel sounds. No palpable organomegaly. MUSCULOSKELETAL: No joint swelling or deformity. EXTREMITIES: No cyanosis, clubbing, or pedal edema. NEUROLOGICAL: Gross neurological examination did not reveal any focal deficits. SKIN: No rashes. Patient Condition at Discharge: Fair Plan - Discharge Summary Discharge Rx Participant: No New Discharge Prescriptions: Continue Insulin Aspart (For Pump) [NovoLOG (For Pump)] 0.01 unit SQ-PUMP CONTINUOUS EPINEPHrine (Auto Inject) [Epipen] 0.3 mg IM ONCE PRN PRN Reason: Anaphylaxis Fludrocortisone [Florinef] 0.1 mg PO HS lisinopriL [Prinivil] 10 mg PO DAILY Mirtazapine [Remeron] 45 mg PO HS Hydrocortisone [Cortef] 10 mg PO BID busPIRone HCL 15 mg PO BID Atorvastatin [Lipitor] 20 mg PO HS ALPRAZolam [Xanax XR] 0.5 mg PO DAILY Discharge Medication List EPINEPHrine (Auto Inject) [Epipen] 0.3 mg IM ONCE PRN 09/20/19 [History] Fludrocortisone [Florinef] 0.1 mg PO HS 09/20/19 [History] Insulin Aspart (For Pump) [NovoLOG (For Pump)] 0.01 unit SQ-PUMP CONTINUOUS 09/20/19 [History] ALPRAZolam [Xanax XR] 0.5 mg PO DAILY 07/29/22 [History] Atorvastatin [Lipitor] 20 mg PO HS 07/29/22 [History] Hydrocortisone [Cortef] 10 mg PO BID 07/29/22 [History] Mirtazapine [Remeron] 45 mg PO HS 07/29/22 [History] busPIRone HCL 15 mg PO BID 07/29/22 [History] lisinopriL [Prinivil] 10 mg PO DAILY 07/29/22 [History] Follow up Appointment(s)/Referral(s): Issa Bean DO [Primary Care Provider] - 08/07/22 2:00 pm Patient Instructions/Handouts: Diabetic Ketoacidosis (DC), COVID-19 (Coronavirus Disease 2019) (DC) Discharge Disposition: HOME SELF-CARE
== END 2022-07-31 13:28 | disposition home or self-care (01) | DRG 637 ==
LOC: EC 15:19 → 3SCARD 22:12
PROVIDERS: ADMIT Internal Medicine; ATTEND Internal Medicine
DX: E10.10 Type 1 diabetes mellitus with ketoacidosis without coma (principal); U07.1 COVID-19; E27.1 Primary adrenocortical insufficiency; N17.9 Acute kidney failure, unspecified; E87.5 Hyperkalemia; Z96.41 Presence of insulin pump (external) (internal); F41.9 Anxiety disorder, unspecified; Z79.4 Long term (current) use of insulin; Z79.899 Other long term (current) drug therapy; Z87.891 Personal history of nicotine dependence; Z91.030 Bee allergy status; Z91.013 Allergy to seafood
CPT/HCPCS: 36415; 71045; 80051; 80053; 81001; 82009; 82565; 82803; 82947; 83036; 83605; 83690; 83735; 84100; 84145; 84484; 84520; 85025; 85610; 87040; 87635; 96361; 96374; 99291

== ENCOUNTER → 2024-04-14 | Outpatient (CLI) | payer BC ==
--- NOTE | 2024-04-14 18:48 | US ---
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 Pt has autoimmune dz and states it "destroys" the thyroid GLAND SIZE: Right Lobe: 5.6 x 2.5 x 1.8 cm Overall Parenchyma: heterogeneous Left Lobe: 5.2 x 2.4 x 1.8 cm Overall Parenchyma: heterogeneous Isthmus Thickness: 0.3 cm NODULES RIGHT: # of nodules measured on right: 2 1. 1.2 X 1.0 x 0.6 cm, mid lateral, cystic or almost completely cystic, anechoic nodule, which is w ider than tall, with smooth margins, with echogenic foci. 2. 1.2 X 1.4 x 0.9 cm, lower mid, cystic or almost completely cystic, anechoic nodule, which is wid er than tall, with lobulated or irregular margins, with echogenic foci. LEFT: # of nodules measured on left: 0 ISTHMUS: # of nodules measured in the isthmus: 0 Multiple lymph nodes seen on left side of neck. Largest is measuring 1.3 x 1.3 x 0.5cm IMPRESSION: 1. Benign appearance thyroid nodules. 2017 ACR TI-RADS LEVEL: TR-RADS 1 - BENIGN: No FNA *Highest TI-RADS level nodule reported
== END | disposition home or self-care (01) ==
LOC: RADUSWWP 16:07
PROVIDERS: ATTEND Family Medicine
DX: E04.2 Nontoxic multinodular goiter (principal); E27.1 Primary adrenocortical insufficiency
CPT/HCPCS: 76536